=== PATIENT | female | born 1985 | race Caucasian/White ===

== ENCOUNTER 2016-06-02 08:54 | Outpatient (CLI) | payer MEDICAID | END 2016-06-02 08:55 | disposition home or self-care (01) | DX: Z13.0 Encounter for screening for diseases of the blood and blood-forming organs and certain disorders involving the immune mechanism (principal); R25.2 Cramp and spasm; Z13.89 Encounter for screening for other disorder; E55.9 Vitamin D deficiency, unspecified; Z13.29 Encounter for screening for other suspected endocrine disorder ==

== ENCOUNTER 2016-06-06 07:58 | Outpatient (CLI) | payer MEDICAID | END 2016-06-06 07:59 | disposition home or self-care (01) | DX: D64.9 Anemia, unspecified (principal) ==

== ENCOUNTER 2017-05-10 08:47 | Emergency (ER) | payer MEDICAID ==
--- NOTE | 2017-05-10 09:36 | ED Physician Documentation ---
History of Present Illness - Stated complaint Stated Complaint: VOMITING/AFTER EATING - Chief complaint Chief Complaint: General - Additonal information Additional information: hx from pt 31 female doesnt think she is preg but not sure states previously dx with esophogeal spasms 2/2 ulcers - diagnosed by EGD, was on omeprazole but not taking any longer, was supposed to have follow up scope but has not happened to ER with NV same as prior 2/2 esoph 2/2 same no abd pain alos has a L parietal SHEA - same as SHEA she gets every months, X few yr, no visual changes, no numbness or weakness, no fever, has not seen neuro etc but sx are suggestive of migraines Review of Systems Constitutional: denies: Fever, Chills Eyes: denies: Loss of vision Ears: reports: Ear pain (SHEA near ear) Throat: denies: Sore throat GI: reports: Nausea, Vomiting. denies: Abdominal Pain, Diarrhea : denies: Now EGA (doubts but not sure) Neurologic: reports: Headache. denies: Focal weakness, Numbness PD PAST MEDICAL HISTORY - Past Medical History Past Medical History: Yes GI: Other Other Past Medical History: Esophageal Spasms - Past Surgical History General: Other - Present Medications Home Medications: Ambulatory Orders Medication Instructions Recorded Confirmed Ondansetron Odt [Zofran] 4 mg TL Q6H PRN #10 tablet 05/10/17 raNITIdine [Zantac] 150 mg PO BID #60 tablet 05/10/17 - Allergies Allergies/Adverse Reactions: Allergies Allergy/AdvReac Type Severity Reaction Status Date / Time No Known Drug Allergies Allergy Verified 05/10/17 08:53 - Social History Does the pt smoke?: No Smoking Status: Never smoker Does the pt drink ETOH?: No Does the pt have substance abuse?: No PD ED PE NORMAL - Vitals Vital signs reviewed: Yes - HEENT HEENT: PERRL (not hazy, pupils reactive), EOMI, Ears normal, Moist mucous membranes (no oral lesions), Other (no mastoid TTP) - Neck Neck: Supple, no meningeal sign - Cardiac Cardiac: RRR - Respiratory Respiratory: No respiratory distress, Clear bilaterally - Abdomen Abdomen: Soft, Non tender - Derm Derm: Normal color - Neuro Neuro: Alert and oriented X 3, porter sample case 2-12 intact, No motor deficit, No sensory deficit, Normal speech Eye Opening: Spontaneous Motor: Obeys Commands Verbal: Oriented GCS Score: 15 Results - Vitals Vitals: Vital Signs - 24 hr 05/10/17 05/10/17 05/10/17 08:51 10:26 11:30 Temperature 37.3 C Heart Rate 87 66 68 Respiratory 18 18 18 Rate Blood Pressure 140/74 H 112/75 119/73 O2 Saturation 100 100 100 Oxygen O2 Source Room air - Labs Labs: Laboratory Tests 05/10/17 09:20 Urine Color YELLOW Urine Clarity CLEAR Urine pH 7.5 Ur Specific [place] 1.020 Urine Protein NEGATIVE Urine Glucose (UA) NEGATIVE Urine Ketones NEGATIVE Urine Occult Blood NEGATIVE Urine Nitrite NEGATIVE Urine Bilirubin NEGATIVE Urine Urobilinogen 0.2 (NORMAL) Ur Leukocyte Esterase NEGATIVE Ur Microscopic Review NOT INDICATED Urine Culture Comments NOT INDICATED Urine HCG, Qual NEGATIVE PD MEDICAL DECISION MAKING - ED course ED course: long wait to get HCG to proceed with meds etc gave meds pt felt better - SHEA still there but starting to improve, understands i cannot give anything stronger as she is driving her child home Departure - Departure Disposition: 01 Home, Self Care Clinical Impression: GERD with esophagitis, Spasm of esophagus Headache Qualifiers: Headache type: unspecified Headache chronicity pattern: chronic headache Intractability: not intractable Qualified Code(s): R51 - Headache Condition: Good Instructions: Esophagitis, ED GERD, ED Cephalgia Unspecified Follow-Up: ELAINA PARKER MD [Provider Admit Priv/Credential] - Prescriptions: Ondansetron Odt [Zofran] 4 mg TL Q6H PRN #10 tablet PRN Reason: Nausea / Vomiting raNITIdine [Zantac] 150 mg PO BID #60 tablet Comments: You need to have the follow up GI scope - please call the surgery office to schedule Discharge Date/Time: 05/10/17 12:07
[2017-05-10 10:41] LABS: BILIRUBIN,URINE NEGATIVE (NEGATIVE); GLUCOSE, URINE (UA) NEGATIVE (NEGATIVE); KETONES,URINE (UA) NEGATIVE (NEGATIVE); LEUKOCYTE ESTERASE, URINE NEGATIVE (NEGATIVE); NITRITE,URINE NEGATIVE (NEGATIVE); OCCULT BLOOD,URINE NEGATIVE (NEGATIVE); PH,URINE 7.5 PH (5.0-7.5); PROTEIN,URINE NEGATIVE (NEGATIVE); UROBILINOGEN,URINE 0.2 (NORMAL) E.U./dL (NORMAL)
[2017-05-10 10:43] LABS: CLARITY,URINE CLEAR (CLEAR); HCG UR QUAL NEGATIVE
[2017-05-10] MEDS ORDERED: MAG HYDROX/AL HYDROX/SIMETH 30 ML UDC PO STA (11:34)
[2017-05-10] MEDS ORDERED: KETOROLAC 30 MG/ML VIAL IVP STA (11:34)
[2017-05-10] MEDS ORDERED: LIDOCAINE VISCOUS 2% 15 ML UDC MM STA (11:34)
[2017-05-10] MEDS ORDERED: FAMOTIDINE 20 MG/50 ML 50 ML IV ONE (11:34)
[2017-05-10] MEDS ORDERED: SUCRALFATE 1 GM/10 ML UDC PO STA (11:34)
[2017-05-10] MEDS ORDERED: ONDANSETRON 4 MG/2 ML VIAL IVP STA (11:34)
[2017-05-10] MEDS ORDERED: ONDANSETRON ODT 4 MG TABLET TL STA (11:35)
[2017-05-10] MEDS ORDERED: FAMOTIDINE 20 MG TABLET PO STA (11:35)
[2017-05-10] MEDS ORDERED: KETOROLAC 60 MG/2 ML VIAL IM STA (11:35)
[2017-05-10 12:01] VITALS: BP 119/73
== END 2017-05-10 12:07 | disposition home or self-care (01) ==
LOC: ED 08:47
DX: K21.0 Gastro-esophageal reflux disease with esophagitis (principal); K22.4 Dyskinesia of esophagus; R51 Headache
CPT/HCPCS: 81003; 81025; 96372; 99283; A9270; Q0162; 81001; 84703; 87086

== ENCOUNTER 2017-07-18 10:16 | Outpatient (CLI) | payer MEDICAID ==
[2017-07-18 17:36] LABS: BASOPHILS % (AUTO) 0.6 %; EOSINOPHILS # (AUTO) 0.1 10^3/uL (0.0-0.7); EOSINOPHILS % (AUTO) 1.4 %; HGB - HEMOGLOBIN 11.4 g/dL (12.0-16.0); LYMPHOCYTES # (AUTO) 2.3 10^3/uL (1.5-3.5); LYMPHOCYTES % (AUTO) 33.8 %; MEAN CORPUSCULAR HEMOGLOBIN 27.8 pg (27.0-31.0); MEAN CORPUSCULAR HGB CONC 32.1 g/dL (32.0-36.0); MEAN CORPUSCULAR VOLUME 86.4 fL (81.0-99.0); MEAN PLATELET VOLUME 8.8 fL (7.9-10.8); MONOCYTES # (AUTO) 0.6 10^3/uL (0.0-1.0); MONOCYTES % (AUTO) 8.2 %; NEUTROPHILS # (AUTO) 3.9 10^3/uL (1.5-6.6); PLT - PLATELET COUNT 283 10^3/uL (130-450); RED BLOOD COUNT 4.12 10^6/uL (4.20-5.40); RED CELL DISTRIBUTION WIDTH 14.2 % (12.0-15.0); WHITE BLOOD COUNT 6.9 x10^3/uL (4.8-10.8)
[2017-07-18 17:58] LABS: ALBUMIN/GLOBULIN RATIO 1.1 (1.0-2.2); BILIRUBIN,TOTAL 0.4 mg/dL (0.2-1.0); CALCIUM 9.1 mg/dL (8.5-10.3); CREATININE 0.7 mg/dL (0.4-1.0); TOTAL PROTEIN 7.8 g/dL (6.7-8.2)
== END 2017-07-18 10:17 | disposition home or self-care (01) ==
LOC: LAB.F 10:16
PROVIDERS: ATTEND Family Medicine
DX: R10.9 Unspecified abdominal pain (principal)
CPT/HCPCS: 36415; 80053; 82150; 83690; 85025

== ENCOUNTER 2017-07-21 08:00 | Outpatient (CLI) | payer MEDICAID ==
[2017-07-23 12:49] LABS: H. PYLORIS ANTIGEN STL NEGATIVE (Negative)
== END 2017-07-21 23:59 ==
LOC: LAB.R 08:00
PROVIDERS: ATTEND Family Medicine
DX: R10.9 Unspecified abdominal pain (principal)
CPT/HCPCS: 87338

== ENCOUNTER 2017-07-27 13:21 | Outpatient (CLI) | payer MEDICAID ==
--- NOTE | 2017-07-27 17:30 | Ultrasound Report ---
RIGHT UPPER QUADRANT ULTRASOUND: 07/27/2017 CLINICAL INDICATION: Pain. TECHNIQUE: Real-time scanning was performed with district representative static images obtained. FINDINGS: The liver measures 15.5 cm. Hepatic echotexture is normal. No intrahepatic biliary dilatation or focal parenchymal lesion is present. The common bile duct measures 4 mm. The gallbladder demonstrates multiple mobile stones. No wall thickening or pericholecystic fluid is present. The right kidney measures 9.7 cm, and demonstrates no hydronephrosis. No free fluid is present. IMPRESSION: CHOLELITHIASIS, WITHOUT EVIDENCE OF ACUTE CHOLECYSTITIS OR BILIARY OBSTRUCTION. TD: 07/27/2017 17:29
== END 2017-07-27 13:22 | disposition home or self-care (01) ==
LOC: DI 13:21
PROVIDERS: ATTEND Family Medicine
DX: K80.20 Calculus of gallbladder without cholecystitis without obstruction (principal)
CPT/HCPCS: 76705

== ENCOUNTER 2017-08-20 14:46 | Outpatient (CLI) | payer MEDICAID ==
[2017-08-20 17:59] LABS: % IRON SATURATION 8 % (20-50); IRON 31 ug/dL (28-170); TOTAL IRON BINDING CAPACITY 365 ug/dL (250-450); TRANSFERRIN 261 mg/dL (192-382)
== END 2017-08-20 14:47 | disposition home or self-care (01) ==
LOC: LAB.F 14:46
PROVIDERS: ATTEND Physician Assistant Medical
DX: D50.9 Iron deficiency anemia, unspecified (principal)
CPT/HCPCS: 36415; 82728; 83540; 84466

== ENCOUNTER 2017-09-03 08:49 | Day surgery (SDC) | payer MEDICAID ==
[2017-09-03] MEDS ORDERED: ceFAZolin 2 GM/50 ML 2 GM/50 ML BAG IV ONE (09:01)
[2017-09-03] MEDS ORDERED: LACTATED RINGERS 1,000 ML IV ONE ×3 (09:03→14:35)
[2017-09-03 09:25] LABS: HCG UR QUAL NEGATIVE
[2017-09-03] MEDS ORDERED: BUPIVACAINE 0.5%-EPI 1:200000 PF 30 ML VIAL ONE (10:23)
[2017-09-03] MEDS ORDERED: BUPIVACAINE 0.5%-EPI 1:200000 PF 30 ML VIAL SUBQ ONE ×2 (11:25)
[2017-09-03] MEDS ORDERED: ESMOLOL 100 MG/10 ML VIAL IVP ONE (11:52)
[2017-09-03] MEDS ORDERED: LIDOCAINE-PF 4% 5 ML AMP SUBQ ONE (11:52)
[2017-09-03] MEDS ORDERED: GLYCOPYRROLATE 1 MG/5 ML VIAL IVP ONE (11:52)
[2017-09-03] MEDS ORDERED: ePHEDrine 50 MG/ML AMP IVP ONE (11:52)
[2017-09-03] MEDS ORDERED: ROCURONIUM 50 MG/5 ML VIAL IVP ONE (11:52)
[2017-09-03] MEDS ORDERED: ONDANSETRON 4 MG/2 ML VIAL IVP ONE (11:52)
[2017-09-03] MEDS ORDERED: NEOSTIGMINE 1 MG/1 ML 10 ML MDV IVP ONE (11:52)
[2017-09-03] MEDS ORDERED: KETOROLAC 30 MG/ML VIAL IVP ONE (11:52)
[2017-09-03] MEDS ORDERED: fentaNYL 100 MCG/2 ML VIAL IVP ONE (11:52)
[2017-09-03] MEDS ORDERED: PROPOFOL 200 MG/20 ML VIAL IVP ONE (11:52)
[2017-09-03] MEDS ORDERED: ONDANSETRON 4 MG/2 ML VIAL ONE (12:45)
[2017-09-03] MEDS ORDERED: DEXAMETHASONE 4 MG/ML VIAL ONE (12:51)
[2017-09-03] MEDS ORDERED: METOCLOPRAMIDE 10 MG/2 ML VIAL ONE (12:52)
[2017-09-03] MEDS: MIDAZOLAM 2 MG/2 ML VIAL ONE ×2 (12:55→13:06)
[2017-09-03] MEDS ORDERED: ACETAMINOPHEN 1,000 MG/100 ML 100 ML IV ONE (13:03)
[2017-09-03] MEDS ORDERED: oxyCOD/ACETAMIN 5 MG/325 MG TABLET PO ONE (14:13)
--- NOTE | 2017-09-03 14:18 | OPERATIVE REPORT ---
DATE OF SERVICE: 09/03/2017 Physician: Tyrese Terry MD PREOPERATIVE DIAGNOSIS: Symptomatic cholelithiasis/biliary colic. POSTOPERATIVE DIAGNOSIS: Symptomatic cholelithiasis/biliary colic. PROCEDURE PERFORMED: Laparoscopic cholecystectomy. ANESTHESIA: General endotracheal by Dr. Correa. SURGEON: Tyrese Terry M.D. BUS MATRON: Mikey Morales BLOOD LOSS: Minimal. COMPLICATIONS: None. FINDINGS: Laparoscopy revealed a normal-appearing liver, stomach and visualized portions of the small and large bowel. The gallbladder was seen to have mild pericholecystic adhesions around its neck. Otherwise, the gallbladder had normal external appearance. Bile ducts were of normal caliber grossly. Following removal of the gallbladder was seen to be full of yellow/green multifaceted and mixed cholesterol type stones at least 20-30 were present. They appeared to measure approximately 4-5 mm in diameter each. INDICATIONS: Patient is a 31-year-old woman with recurrent episodes of postprandial epigastric and right upper quadrant pain. Her evaluation included ultrasonography showing the presence of cholelithiasis with normal bile ducts. Laboratory testing was all normal. She was felt to be suffering from symptomatic cholelithiasis and advised to undergo laparoscopic cholecystectomy. TECHNIQUE: After informed consent, the patient was taken to the operating room where she was placed under general endotracheal anesthesia. Preoperative preparation included application of sequential calf compression devices and administration 2 grams cefazolin intravenously within an hour of the incision. Her abdomen was prepared with ChloraPrep solution and draped in the usual sterile fashion. Transverse incision was made along the inferior edge of the umbilicus and carried down through the layers of the abdominal wall until the peritoneum was identified and entered sharply. A 10 mm Nena cannula was inserted and pneumoperitoneum achieved with carbon dioxide. A 5-mm 30-degree Ines telescope was inserted. Laparoscopy was carried out with findings noted above. Three additional 5 mm ports were placed in the right upper quadrant. Instruments were passed and the gallbladder was grasped and retracted in a cephalad and lateral direction exposing the triangle of [place]. This region was carefully dissected using the hook electrode and electrocautery, isolating the cystic duct and cystic artery, adjacent to the gallbladder and the critical view of safety was achieved, following which, the cystic artery was doubly clipped proximally and distally. The cystic duct was triply clipped distally, doubly proximally and each structure was divided between. The gallbladder was then excised from the liver bed using electrocautery for dissection and hemostasis. It was detached intact, placed in organ retrieval bag, extracted and opened on the side table and findings noted above and then the tissue sent for pathologic evaluation. After hemostasis was assured, the right upper quadrant was copiously irrigated with saline solution following which instruments and cannulas were removed under direct vision. Pneumoperitoneum was allowed to escape and the incisions were closed in layers using continuous 0 Vicryl, reapproximate the midline fascia at the umbilicus, followed by 4-0 Monocryl subcuticular skin closures at all the port sites, followed by Dermabond. In addition, 30 mL of 0.5% Marcaine with epinephrine was infiltrated into the incisions to assist in postoperative analgesia. Anesthesia was terminated and the patient transferred to the recovery room in satisfactory condition. Sponge and needle counts were correct x2. No drains were used. TD: 09/03/2017 12:34
[2017-09-03] MEDS ORDERED: PROMETHAZINE 25 MG/1 ML VIAL ONE (14:35)
[2017-09-03 16:12] VITALS: BP 113/74
== END 2017-09-03 08:50 | disposition home or self-care (01) ==
LOC: SDS 08:49
PROVIDERS: ATTEND Internal Medicine Gastroenterology
PROC: 0FT44ZZ Resection of Gallbladder, Percutaneous Endoscopic Approach (ICD-10-PCS; principal; 2017-09-03 10:00)
DX: K80.20 Calculus of gallbladder without cholecystitis without obstruction (principal); K21.9 Gastro-esophageal reflux disease without esophagitis
CPT/HCPCS: 47562; 81025; A9270; J0131; J0690; J7120; 88304

== ENCOUNTER 2017-09-18 14:28 | Outpatient (CLI) | payer MEDICAID ==
[2017-09-18 14:37] LABS: BASOPHILS # (AUTO) 0.1 10^3/uL (0.0-0.1); BASOPHILS % (AUTO) 1.8 %; EOSINOPHILS # (AUTO) 0.1 10^3/uL (0.0-0.7); EOSINOPHILS % (AUTO) 1.6 %; HGB - HEMOGLOBIN 12.2 g/dL (12.0-16.0); LYMPHOCYTES # (AUTO) 2.3 10^3/uL (1.5-3.5); LYMPHOCYTES % (AUTO) 34.8 %; MEAN CORPUSCULAR HEMOGLOBIN 28.6 pg (27.0-31.0); MEAN CORPUSCULAR HGB CONC 32.7 g/dL (32.0-36.0); MEAN CORPUSCULAR VOLUME 87.5 fL (81.0-99.0); MONOCYTES # (AUTO) 0.6 10^3/uL (0.0-1.0); NEUTROPHILS # (AUTO) 3.5 10^3/uL (1.5-6.6); NEUTROPHILS % (AUTO) 52.8 %; PLT - PLATELET COUNT 285 10^3/uL (130-450); RED BLOOD COUNT 4.27 10^6/uL (4.20-5.40); RED CELL DISTRIBUTION WIDTH 15.1 % (12.0-15.0); WHITE BLOOD COUNT 6.6 x10^3/uL (4.8-10.8)
[2017-09-18 15:09] LABS: ALBUMIN/GLOBULIN RATIO 1.1 (1.0-2.2); BILIRUBIN,TOTAL 0.5 mg/dL (0.2-1.0); CALCIUM 9.1 mg/dL (8.5-10.3); CREATININE 0.8 mg/dL (0.4-1.0); TOTAL PROTEIN 7.8 g/dL (6.7-8.2)
== END 2017-09-18 14:29 | disposition home or self-care (01) ==
LOC: LAB 14:28
PROVIDERS: ATTEND Internal Medicine Gastroenterology
DX: K80.20 Calculus of gallbladder without cholecystitis without obstruction (principal); R10.13 Epigastric pain
CPT/HCPCS: 36415; 80053; 83690; 85025

== ENCOUNTER 2018-01-28 08:00 | Outpatient (CLI) | payer MEDICAID | END 2018-01-28 08:01 | disposition home or self-care (01) | LOC: LAB.R 08:00 | PROVIDERS: ATTEND Physician Assistant Medical | DX: N39.0 Urinary tract infection, site not specified (principal) | CPT/HCPCS: 87086; 87181 ==

== ENCOUNTER 2018-01-29 21:06 | Outpatient (CLI) | payer MEDICAID ==
--- NOTE | 2018-01-29 23:18 | Ultrasound Report ---
Reason: GROSS HEMATURIA,FLANK PAIN,RIGHT Procedure Date: 01/29/2018 Accession Number: [id number] / [id number] Procedure: US - Abdomen Complete CPT Code: FULL RESULT: EXAM: ABDOMEN ULTRASOUND EXAM DATE: 01/29/2018 09:38 PM. CLINICAL HISTORY: GROSS HEMATURIA,FLANK PAIN,RIGHT. COMPARISON: ABDOMEN LIMITED 07/27/2017 1:29 PM. TECHNIQUE: Real-time scanning was performed with static images obtained. FINDINGS: Liver: Normal in size and echotexture. 15.5 cm. Main portal vein flow: Hepatopetal. Gallbladder: Surgically absent. Biliary System: Common bile duct measures 4 mm. No intrahepatic or extrahepatic ductal dilatation. Pancreas: Visualized portion is unremarkable. Kidneys: Right: 10.1 cm longitudinally. Normal. No contour-deforming mass, stones, or hydronephrosis. Left: 10.9 cm longitudinally. Normal. No contour-deforming mass, stones, or hydronephrosis. Spleen: 10.7 cm. Normal in size and echotexture. Aorta and Inferior Vena Cava: Unremarkable. Other: None. IMPRESSION: Postoperative changes of cholecystectomy. No evidence of nephrolithiasis, hydronephrosis, or focal renal mass. RADIA
== END 2018-01-29 21:07 | disposition home or self-care (01) ==
LOC: DI 21:06
PROVIDERS: ATTEND Physician Assistant Medical
DX: R31.0 Gross hematuria (principal); R10.9 Unspecified abdominal pain; Z90.49 Acquired absence of other specified parts of digestive tract
CPT/HCPCS: 76700

== ENCOUNTER 2018-02-27 14:09 | Outpatient (CLI) | payer MEDICAID ==
[2018-02-27 18:32] LABS: % IRON SATURATION 14 % (20-50); IRON 47 ug/dL (28-170); TOTAL IRON BINDING CAPACITY 347 ug/dL (250-450); TRANSFERRIN 248 mg/dL (192-382)
[2018-02-27 18:33] LABS: THYROID STIMULATING HORMONE 1.15 uIU/mL (0.34-5.60)
[2018-02-27 18:39] LABS: FERRITIN 17.4 ng/mL (11.0-306.8)
[2018-02-28 10:50] LABS: ALBUMIN 4.3 g/dL (3.2-5.5); ALBUMIN/GLOBULIN RATIO 1.3 (1.0-2.2); BILIRUBIN,TOTAL 0.4 mg/dL (0.2-1.0); CALCIUM 9.4 mg/dL (8.5-10.3); CREATININE 0.6 mg/dL (0.4-1.0); MAGNESIUM 2.2 mg/dL (1.7-2.8); TOTAL PROTEIN 7.6 g/dL (6.7-8.2)
== END 2018-02-27 14:10 | disposition home or self-care (01) ==
LOC: LAB.F 14:09
PROVIDERS: ATTEND Physician Assistant Medical
DX: E55.9 Vitamin D deficiency, unspecified (principal); D50.9 Iron deficiency anemia, unspecified; R53.83 Other fatigue; M62.838 Other muscle spasm; G60.9 Hereditary and idiopathic neuropathy, unspecified
CPT/HCPCS: 36415; 80053; 82306; 82607; 82728; 83540; 83735; 84443; 84466

== ENCOUNTER 2018-03-12 09:08 | Emergency (ER) | payer MEDICAID ==
--- NOTE | 2018-03-12 10:39 | ED Physician Documentation ---
History of Present Illness - Stated complaint Stated Complaint: CHEST TIGHTNESS - Chief complaint Chief Complaint: General - Additonal information Additional information: hx from pt epigastric pains with abd and chest spasms for years worse the last year PMD tried omeprazole and reglan s relief she had abd sono and a malina sx continue much worse this week occurring many times a day sometimes triggered by eating resolves spont after 45 min to and hr + SOA and nausea with episodes no leg swelling denies pre no EtoH Review of Systems Constitutional: denies: Fever, Chills Cardiac: reports: Chest pain / pressure Respiratory: reports: Dyspnea GI: reports: Abdominal Pain, Nausea. denies: Vomiting, Diarrhea Musculoskeletal: reports: Back pain (wraps around) Endocrine: denies: Easy bruising / bleeding Immunocompromised: denies: Immunocompromised PD PAST MEDICAL HISTORY - Past Medical History Cardiovascular: None Respiratory: None Endocrine/Autoimmune: None GI: Other : None HEENT: None Psych: Claustrophobia Musculoskeletal: None Derm: None - Past Surgical History General: Other - Present Medications Home Medications: Ambulatory Orders Medication Instructions Recorded Confirmed Cholecalciferol [Vitamin D3] 6,000 unit PO DAILY 08/30/17 09/03/17 Ferrous Sulfate 325 mg PO DAILY 08/30/17 09/03/17 Metoclopramide [Reglan] 10 mg PO ACHS 08/30/17 09/03/17 Omeprazole 20 mg PO BID 08/30/17 09/03/17 Simethicone [Gas Relief] 125 mg PO DAILY PRN 08/30/17 09/03/17 Dicyclomine [Bentyl] 10 mg PO Q8H PRN #20 capsule 03/12/18 Famotidine [Pepcid] 20 mg PO BID #60 tablet 03/12/18 Sucralfate [Carafate] 1 gm PO ACHS #120 tablet 03/12/18 - Allergies Allergies/Adverse Reactions: Allergies Allergy/AdvReac Type Severity Reaction Status Date / Time No Known Drug Allergies Allergy Verified 08/30/17 14:29 - Social History Does the pt smoke?: No Smoking Status: Never smoker Does the pt drink ETOH?: No Does the pt have substance abuse?: No PD ED PE NORMAL - Vitals Vital signs reviewed: Yes - General General: Alert and oriented X 3 - Cardiac Cardiac: RRR - Respiratory Respiratory: No respiratory distress, Clear bilaterally - Abdomen Abdomen: Soft, Other (TTP epigastric region s peritoneal signs, aorta palp but does not feel enlarged) - Extremities Extremities: No edema, No calf tenderness / cord - Neuro Neuro: Alert and oriented X 3, No motor deficit Results - Vitals Vitals: Vital Signs - 24 hr 03/12/18 03/12/18 09:25 13:16 Temperature 36.5 C 36.6 C Heart Rate 96 89 Respiratory 18 18 Rate Blood Pressure 122/85 H 120/84 H O2 Saturation 100 100 Oxygen O2 Source Room air - EKG (time done) 0948 Rate: Rate (enter#) Rhythm: NSR (57) [place]: Normal Intervals: Normal RI QRS: Normal Ischemia: Normal ST segments - Labs Labs: Laboratory Tests 03/12/18 03/12/18 11:14 11:14 WBC 8.3 RBC 4.09 L Hgb 12.1 Hct 35.7 L MCV 87.3 MCH 29.5 MCHC 33.9 RDW 14.4 Plt Count 265 MPV 7.8 L Neut # (Auto) 5.4 Lymph # (Auto) 2.1 [place] # (Auto) 0.7 Eos # (Auto) 0.0 Baso # (Auto) 0.1 Absolute Nucleated RBC 0.00 Nucleated RBC % 0.0 Sodium 135 Potassium 3.9 Chloride 101 Carbon Dioxide 28 Anion Gap 6.0 BUN 10 Creatinine 0.7 Estimated GFR (MDRD) 96 Glucose 102 H Calcium 8.9 Total Bilirubin 0.3 AST 48 H ALT 45 Alkaline Phosphatase 87 Total Protein 8.0 Albumin 4.2 Globulin 3.8 Albumin/Globulin Ratio 1.1 Lipase 21 L Departure - Departure Disposition: 01 Home, Self Care Clinical Impression: Epigastric pain Condition: Good Instructions: ED PUD, ED Epigastric Pain UKO Follow-Up: Griffin Min MD [Provider Admit Priv/Credential] - (to schedule EGD) Prescriptions: Dicyclomine [Bentyl] 10 mg PO Q8H PRN #20 capsule PRN Reason: Stomach cramps Famotidine [Pepcid] 20 mg PO BID #60 tablet Sucralfate [Carafate] 1 gm PO ACHS #120 tablet Comments: Your labs looked fine You recently had imaging that was reassuring as well I am concerned you may have an ulcer and I have prescribed medication for that possibility - Ok to take with the reglan you are already prescribed I recommend you get a scope of your stomach called an EGD to confirm this d iagnosis- please call the surgery office to schedule Forms: Activity restrictions Discharge Date/Time: 03/12/18 13:16
[2018-03-12] MEDS ORDERED: SUCRALFATE 1 GM/10 ML UDC PO STA (11:05)
[2018-03-12] MEDS ORDERED: MAG HYDROX/AL HYDROX/SIMETH 30 ML UDC PO STA (11:05)
[2018-03-12] MEDS ORDERED: FAMOTIDINE 20 MG/50 ML 50 ML IV ONE (11:05)
[2018-03-12] MEDS ORDERED: LIDOCAINE VISCOUS 2% 15 ML UDC MM STA (11:05)
[2018-03-12 11:22] LABS: BASOPHILS # (AUTO) 0.1 10^3/uL (0.0-0.1); BASOPHILS % (AUTO) 0.9 %; EOSINOPHILS % (AUTO) 0.3 %; HGB - HEMOGLOBIN 12.1 g/dL (12.0-16.0); LYMPHOCYTES # (AUTO) 2.1 10^3/uL (1.5-3.5); LYMPHOCYTES % (AUTO) 24.7 %; MEAN CORPUSCULAR HEMOGLOBIN 29.5 pg (27.0-31.0); MEAN CORPUSCULAR HGB CONC 33.9 g/dL (32.0-36.0); MEAN CORPUSCULAR VOLUME 87.3 fL (81.0-99.0); MEAN PLATELET VOLUME 7.8 fL (7.9-10.8); MONOCYTES # (AUTO) 0.7 10^3/uL (0.0-1.0); NEUTROPHILS # (AUTO) 5.4 10^3/uL (1.5-6.6); NEUTROPHILS % (AUTO) 65.1 %; PLT - PLATELET COUNT 265 10^3/uL (130-450); RED BLOOD COUNT 4.09 10^6/uL (4.20-5.40); RED CELL DISTRIBUTION WIDTH 14.4 % (12.0-15.0); WHITE BLOOD COUNT 8.3 x10^3/uL (4.8-10.8)
[2018-03-12 11:35] LABS: ALBUMIN 4.2 g/dL (3.2-5.5); ALBUMIN/GLOBULIN RATIO 1.1 (1.0-2.2); BILIRUBIN,TOTAL 0.3 mg/dL (0.2-1.0); CALCIUM 8.9 mg/dL (8.5-10.3); CREATININE 0.7 mg/dL (0.4-1.0)
[2018-03-12 13:17] VITALS: BP 120/84
== END 2018-03-12 13:16 | disposition home or self-care (01) ==
LOC: ED 09:08
DX: R10.13 Epigastric pain (principal); R11.0 Nausea; R07.9 Chest pain, unspecified
CPT/HCPCS: 36415; 80053; 83690; 85025; 93005; 96365; 99283; A9270

== ENCOUNTER 2022-08-07 20:08 | Emergency (ER) | payer MEDICAID ==
[2022-08-07 20:14] VITALS: BP 134/84
--- NOTE | 2022-08-07 20:22 | ED Physician Documentation ---
PD HPI LOWER EXT INJURY - Stated complaint Stated Complaint: R TOE INJ - Chief complaint Chief Complaint: Trauma Ext - History obtained from History obtained from: Patient (She dropped a piece of plywood on her right great toe at home around 11:00 this morning and with increasing severe pain.) PD PAST MEDICAL HISTORY - Past Medical History Cardiovascular: None Respiratory: None Neuro: None Endocrine/Autoimmune: None GI: Other [employer]: None : None HEENT: None Psych: Claustrophobia Musculoskeletal: None Derm: None - Past Surgical History Past Surgical History: Yes General: Other - Present Medications Home Medications: Ambulatory Orders Medication Instructions Recorded Confirmed Cholecalciferol [Vitamin D3] 6,000 unit PO DAILY 08/30/17 09/03/17 Ferrous Sulfate 325 mg PO DAILY 08/30/17 09/03/17 Metoclopramide [Reglan] 10 mg PO ACHS 08/30/17 09/03/17 Omeprazole 20 mg PO BID 08/30/17 09/03/17 Simethicone [Gas Relief] 125 mg PO DAILY PRN 08/30/17 09/03/17 Dicyclomine [Bentyl] 10 mg PO Q8H PRN #20 capsule 03/12/18 Famotidine [Pepcid] 20 mg PO BID #60 tablet 03/12/18 Sucralfate [Carafate] 1 gm PO ACHS #120 tablet 03/12/18 HYDROcod/ACETAM 5/325 [[place] 5/325] 1 - 2 tab PO Q6H PRN #10 tablet 08/07/22 - Allergies Allergies/Adverse Reactions: Allergies Allergy/AdvReac Type Severity Reaction Status Date / Time No Known Drug Allergies Allergy Verified 08/07/22 20:12 - Social History Does the pt smoke?: No Smoking Status: Never smoker Does the pt drink ETOH?: No Does the pt have substance abuse?: No - Immunizations Immunizations are current?: Yes - POLST Patient has POLST: No PD ED PE NORMAL - Vitals Vital signs reviewed: Yes - General General: Alert and oriented X 3, No acute distress - Derm Derm: Normal color, Warm and dry - Extremities Extremities: Other (Bruising of the entirety of the right great toe with tenderness throughout.) - Neuro Neuro: Alert and oriented X 3, Normal speech Results - Vitals Vitals: Vital Signs - 24 hr 08/07/22 20:12 Temperature 36.5 C Heart Rate 88 Respiratory 18 Rate Blood Pressure 134/84 H O2 Saturation 100 Oxygen O2 Source Room air - Rads (name of study) R foot XR Relevant Findings:: Final report received, EMP independent interpretation of test Procedures - Regional nerve block - Minor Nerve block site: Digital - note digit(s) (Digital block was done with Marcaine and a standard dorsal fashion. 0.5%.) PD Medical Decision Making - ED course ED course: 36-year-old woman with a right large toe fracture. She had a lot of pain and was blocked with Marcaine on initial evaluation with excellent relief. She was developing a subungual hematoma so the nail was trephinated. Then she was toni taped and placed in a fracture shoe. Departure - Departure Disposition: 01 Home, Self Care Clinical Impression: Fracture of right great toe Qualifiers: Encounter type: initial encounter Fracture type: closed Phalanx: distal Fracture alignment: nondisplaced Qualified Code(s): S92.424A - Nondisplaced fracture of distal phalanx of right great toe, initial encounter for closed fracture Condition: Good Record reviewed to determine appropriate education?: Yes Instructions: ED Fx Toe Closed Follow-Up: [facility] [Provider Group] Prescriptions: HYDROcod/ACETAM 5/325 [[place] 5/325] 1 - 2 tab PO Q6H PRN #10 tablet PRN Reason: Pain Comments: Follow-up with the orthopedic surgeons within the week for further evaluation an d treatment. Call tomorrow for an appointment. Keep it elevated and toni tape as shown. I sent a prescription for some stronger pain medication to [facility] in [place]. When pain is mild take Tylenol and/or ibuprofen as needed for pain. Elevate is much as possible. You can also ice it. I am prescribing a short course of narcotic pain medication for you. These are potentially dangerous and addictive medications that should be used carefully. These medications may constipate you. Take an [id number] stool softener (docusate) twice daily with plenty of water while taking these medications. If you go 24 hours without a bowel movement, take [id number] miralax, per package instructions. Do not drink or drive while taking these medications. If you received narcotic or sedating medications while in the emergency department, do not drive for 24 hours. Store this medication in a safe, secure place and out of reach of children. It is a violation of federal law to give or sell this medication to another person or to use in a manner other than prescribed. The ED will not refill narcotic prescriptions, including prescriptions lost or stolen. To dispose of unwanted medications: 1. [facility] [address] in [place] has a medication drop box. They accept prescription medications (in pill form) Sunday through Sunday 9:00 a.m. to 5:00 p.m. 2. The [facility] accepts prescription medications (in pill form only) for disposal year round. Call for more information. 3. Contact the [facility] for the next [facility] sponsored prescription drug collection event. , [phone], or [phone]; Note that many narcotic pain relievers also contain Tylenol/acetaminophen. Please ensure that your total dose of acetaminophen from all sources does not exceed 3 g (3000 mg) per day. Discharge Date/Time: 08/07/22 21:05
[2022-08-07] MEDS ORDERED: HYDROcod/ACET 5/325 Prepack 4 PO STA (20:57)
--- OUTSIDE RECORDS SUMMARY | 2022-08-07 21:15 | EXTERNAL MEDICAL SUMMARY RPT | Continuity of Care Document ---
Author Name Unknown Address [address] [place] [address] Phone Organization [facility] Address [address] [place] [address] Phone Care Team Providers Care Carrier Driver Name Role Phone Zainab Rosas Unavailable Unavailable Eunice Vigil Unavailable Unavailable Problems date description facility 2022-06-02 08:41 Irregular menstruation, unspeci fied [facility] 2022-06-02 08:41 Snoring [facility] 2022-06-02 08:41 Other fatigue [facility] 2022-06-02 08:41 Abnormal levels of other serum enzymes [facility] 2022-06-12 00:00 Abdominal aortic aneurysm (AAA) [facility] 2022-06-12 00:00 Nonalcoholic fatty liver diseas e [facility] 2022-06-12 00:[facility] 13:38 Unspecified abdominal pain [facility] 2022-08-06 13:41 Unspecified abdominal pain [facility] 2022-08-07 00:08 Unspecified abdominal pain [facility] Results/Labs test date author facility value unit interpretation Result panel 1 (unknown) (no date) (unknown) [facility] (no value) (units unknown) (unknown) Result panel 2 (unknown) (no date) (unknown) [facility] (no value) (units unknown) (unknown) Result panel 3 (unknown) (no date) (unknown) [facility] (no value) (units unknown) (unknown) Result panel 4 (unknown) (no date) (unknown) [facility] (no value) (units unknown) (unknown) Result panel 5 (unknown) (no date) (unknown) [facility] (no value) (units unknown) (unknown) Result panel 6 (unknown) (no date) (unknown) [facility] (no value) (units unknown) (unknown) Result panel 7 (unknown) (no date) (unknown) [facility] (no value) (units unknown) (unknown) Result panel 8 (unknown) (no date) (unknown) [facility] (no value) (units unknown) (unknown) Result panel 9 (unknown) (no date) (unknown) [facility] (no value) (units unknown) (unknown) Result panel 10 (unknown) (no date) (unknown) [facility] (no value) (units unknown) (unknown) Result panel 11 (unknown) (no date) (unknown) [facility] (no value) (units unknown) (unknown) Result panel 12 (unknown) (no date) (unknown) [facility] (no value) (units unknown) (unknown) Result panel 13 (unknown) (no date) (unknown) [facility] (no value) (units unknown) (unknown) Result panel 14 (unknown) (no date) (unknown) [facility] (no value) (units unknown) (unknown) Result panel 15 (unknown) (no date) (unknown) [facility] (no value) (units unknown) (unknown) Result panel 16 (unknown) (no date) (unknown) [facility] (no value) (units unknown) (unknown) Result panel 17 (unknown) (no date) (unknown) [facility] (no value) (units unknown) (unknown) Result panel 18 (unknown) (no date) (unknown) [facility] (no value) (units unknown) (unknown) Result panel 19 (unknown) (no date) (unknown) [facility] (no value) (units unknown) (unknown) Result panel 20 (unknown) (no date) (unknown) [facility] (no value) (units unknown) (unknown) Result panel 21 (unknown) (no date) (unknown) [facility] (no value) (units unknown) (unknown) Result panel 22 (unknown) (no date) (unknown) [facility] (no value) (units unknown) (unknown) Result panel 23 (unknown) (no date) (unknown) [facility] (no value) (units unknown) (unknown) Result panel 24 (unknown) (no date) (unknown) [facility] (no value) (units unknown) (unknown) Result panel 25 (unknown) (no date) (unknown) [facility] (no value) (units unknown) (unknown) Result panel 26 (unknown) (no date) (unknown) [facility] (no value) (units unknown) (unknown) Result panel 27 (unknown) (no date) (unknown) [facility] (no value) (units unknown) (unknown) Result panel 28 (unknown) (no date) (unknown) [facility] (no value) (units unknown) (unknown) Result panel 29 (unknown) (no date) (unknown) [facility] (no value) (units unknown) (unknown) Result panel 30 (unknown) (no date) (unknown) [facility] (no value) (units unknown) (unknown) Result panel 31 (unknown) (no date) (unknown) [facility] (no value) (units unknown) (unknown) Result panel 32 (unknown) (no date) (unknown) [facility] (no value) (units unknown) (unknown) Result panel 33 (unknown) (no date) (unknown) [facility] (no value) (units unknown) (unknown) Result panel 34 (unknown) (no date) (unknown) [facility] (no value) (units unknown) (unknown) Result panel 35 (unknown) (no date) (unknown) (unknown) (no value) (units unknown) (unknown) (unknown) (no date) (unknown) (unknown) [id number] (units unknown) (unknown) (unknown) (no date) (unknown) (unknown) 06/02/22 (units unknown) (unknown) (unknown) (no date) (unknown) (unknown) 36 year old fe male presents to clinic to establish care and review elevated (units unknown) (unknown) (unknown) (no date) (unknown) (unknown) Acne (-1998) (units unknown) (unknown) (unknown) (no date) (unknown) (unknown) Age/Sex: 36 / F Date of Service: (units unknown) (unknown) (unknown) (no date) (unknown) (unknown) Allergies (units unknown) (unknown) (unknown) (no date) (unknown) (unknown) [place], [place] [id number] (units unknown) (unknown) (unknown) (no date) (unknown) (unknown) Anemia (units unknown) (unknown) (unknown) (no date) (unknown) (unknown) Anesthesia (units unknown) (unknown) (unknown) (no date) (unknown) (unknown) Attending Dr: Zainab Rosas D.O. (units unknown) (unknown) (unknown) (no date) (unknown) (unknown) Brother Down syndrome (units unknown) (unknown) (unknown) (no date) (unknown) (unknown) Cancer (units unknown) (unknown) (unknown) (no date) (unknown) (unknown) : 5 Acct:[id number] (units unknown) (unknown) (unknown) (no date) (unknown) (unknown) Dept at . (units unknown) (unknown) (unknown) (no date) (unknown) (unknown) Diet and Exercise (u nits unknown) (unknown) (unknown) (no date) (unknown) (unknown) Documented By: Zainab Rosas 06/02/22 0803 (units unknown) (unknown) (unknown) (no date) (unknown) (unknown) Draft (units unknown) (unknown) (unknown) (no date) (unknown) (unknown) Dysphagia (2005) (un its unknown) (unknown) (unknown) (no date) (unknown) (unknown) Elevated liver enzymes (01/2019) (units unknown) (unknown) (unknown) (no date) (unknown) (unknown) Family History (units unknown) (unknown) (unknown) (no date) (unknown) (unknown) Family Practic e Office Visit (units unknown) (unknown) (unknown) (no date) (unknown) (unknown) Family estrangement (units unknown) (unknown) (unknown) (no date) (unknown) (unknown) Father d Liver cancer (units unknown) (unknown) (unknown) (no date) (unknown) (unknown) [facility] (units unknown) (unknown) (unknown) (no date) (unknown) (unknown) GERD (gastroesophageal reflux disease) (-2005) (units unknown) (unknown) (unknown) (no date) (unknown) (unknown) Gallstones (-2017) ( units unknown) (unknown) (unknown) (no date) (unknown) (unknown) Glaucoma (units unknown) (unknown) (unknown) (no date) (unknown) (unknown) Grandfather Cancer (units unknown) (unknown) (unknown) (no date) (unknown) (unknown) Grandfather Unknown whether patient has any health problems (units unknown) (unknown) (unknown) (no date) (unknown) (unknown) Grandmother Family estrangement (units unknown) (unknown) (unknown) (no date) (unknown) (unknown) Grandmother No problems noted. (units unknown) (unknown) (unknown) (no date) (unknown) (unknown) Health Managem ent reviewed with patient: Yes (units unknown) (unknown) (unknown) (no date) (unknown) (unknown) Health Management (u nits unknown) (unknown) (unknown) (no date) (unknown) (unknown) Heavy menstrua l period () (units unknown) (unknown) (unknown) (no date) (unknown) (unknown) History of cholecystectomy () (units unknown) (unknown) (unknown) (no date) (unknown) (unknown) Intake Note: (units unknown) (unknown) (unknown) (no date) (unknown) (unknown) Intake perform ed by: Christy Hawthorne (units unknown) (unknown) (unknown) (no date) (unknown) (unknown) Intake (units unknown) (unknown) (unknown) (no date) (unknown) (unknown) Intake- [facility] (units unknown) (unknown) (unknown) (no date) (unknown) (unknown) Irregular mens trual cycle () (units unknown) (unknown) (unknown) (no date) (unknown) (unknown) Loc: [facility] (units unknown) (unknown) (unknown) (no date) (unknown) (unknown) Medical Histor y (units unknown) (unknown) (unknown) (no date) (unknown) (unknown) Migraines (units unknown) (unknown) (unknown) (no date) (unknown) (unknown) Mother Rheumat oid arthritis (units unknown) (unknown) (unknown) (no date) (unknown) (unknown) No Known Drug Allergies Allergy (Verified 06/02/22 08:04) (units unknown) (unknown) (unknown) (no date) (unknown) (unknown) PFSH (units unknown) (unknown) (unknown) (no date) (unknown) (unknown) Painful menstr ual periods () (units unknown) (unknown) (unknown) (no date) (unknown) (unknown) Patient: Haydee Woodson MR#: [id number] (units unknown) (unknown) (unknown) (no date) (unknown) (unknown) (units unknown) (unknown) (unknown) (no date) (unknown) (unknown) Psoriasis (units unknown) (unknown) (unknown) (no date) (unknown) (unknown) Reason For Visit (un its unknown) (unknown) (unknown) (no date) (unknown) (unknown) Regurgitation of food (units unknown) (unknown) (unknown) (no date) (unknown) (unknown) Safety (units unknown) (unknown) (unknown) (no date) (unknown) (unknown) Signed By: (units unknown) (unknown) (unknown) (no date) (unknown) (unknown) Sister Glaucoma (uni ts unknown) (unknown) (unknown) (no date) (unknown) (unknown) Sister History of cholecystectomy (units unknown) (unknown) (unknown) (no date) (unknown) (unknown) Smoking Status : Never smoker (units unknown) (unknown) (unknown) (no date) (unknown) (unknown) Social History (unit s unknown) (unknown) (unknown) (no date) (unknown) (unknown) Surgical Histo ry (units unknown) (unknown) (unknown) (no date) (unknown) (unknown) This note may have been all or partially generated using voice recognition (units unknown) (unknown) (unknown) (no date) (unknown) (unknown) Threatened (units unknown) (unknown) (unknown) (no date) (unknown) (unknown) Tobacco + Subs tance Use (units unknown) (unknown) (unknown) (no date) (unknown) (unknown) Tobacco Status (unit s unknown) (unknown) (unknown) (no date) (unknown) (unknown) Type(s) of exercise: normal ROM and activity (Busy mom, with young children) (units unknown) (unknown) (unknown) (no date) (unknown) (unknown) Unknown whethe r patient has any health problems (units unknown) (unknown) (unknown) (no date) (unknown) (unknown) Uterine cancer (unit s unknown) (unknown) (unknown) (no date) (unknown) (unknown) 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 (units unknown) (unknown) (unknown) (no date) (unknown) (unknown) Petroleum teeth removed (-2006) (units unknown) (unknown) (unknown) (no date) (unknown) (unknown) alcohol intake : never (units unknown) (unknown) (unknown) (no date) (unknown) (unknown) caffeine: Yes (1 decaf daily.) (units unknown) (unknown) (unknown) (no date) (unknown) (unknown) caregiver/supp ort person: No (units unknown) (unknown) (unknown) (no date) (unknown) (unknown) current occupational exposures/hazards: No (units unknown) (unknown) (unknown) (no date) (unknown) (unknown) daily servings fruits/ve-4 (units unknown) (unknown) (unknown) (no date) (unknown) (unknown) do you feel sa fe at home: Yes (units unknown) (unknown) (unknown) (no date) (unknown) (unknown) during the pas t year weight has: remained stable (units unknown) (unknown) (unknown) (no date) (unknown) (unknown) education leve l: high school (units unknown) (unknown) (unknown) (no date) (unknown) (unknown) jj/jainism : Anabaptism (units unknown) (unknown) (unknown) (no date) (unknown) (unknown) frequency: ro s not exercise (units unknown) (unknown) (unknown) (no date) (unknown) (unknown) have occurred. If there are any questions, please contact the Medical Records (units unknown) (unknown) (unknown) (no date) (unknown) (unknown) household memb ers: spouse and children (units unknown) (unknown) (unknown) (no date) (unknown) (unknown) housing: house (unit s unknown) (unknown) (unknown) (no date) (unknown) (unknown) liver enzymes. (unit s unknown) (unknown) (unknown) (no date) (unknown) (unknown) lives independently: Yes (units unknown) (unknown) (unknown) (no date) (unknown) (unknown) marital status : (units unknown) (unknown) (unknown) (no date) (unknown) (unknown) may occur. 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 Please (units unknown) (unknown) (unknown) (no date) (unknown) (unknown) pets and anima ls: Yes (Dogs + cats: safe/ aware.) (units unknown) (unknown) (unknown) (no date) (unknown) (unknown) read the note carefully and recognize, using context, where these substitutions (units unknown) (unknown) (unknown) (no date) (unknown) (unknown) seatbelt use: always (units unknown) (unknown) (unknown) (no date) (unknown) (unknown) second hand exposure: No (units unknown) (unknown) (unknown) (no date) (unknown) (unknown) software. Alth ough every effort is made to edit content, advanced seal delivery system errors (units unknown) (unknown) (unknown) (no date) (unknown) (unknown) special jj needs: No (units unknown) (unknown) (unknown) (no date) (unknown) (unknown) substance use type: does not use (units unknown) (unknown) (unknown) (no date) (unknown) (unknown) well-balanced diet: about half the time ('Hard to eat protein lately.' ) (units unknown) (unknown) Result panel 36 (unknown) (no date) (unknown) (unknown) (no value) (units unknown) (unknown) (unknown) (no date) (unknown) (unknown) [id number] (units unknown) (unknown) (unknown) (no date) (unknown) (unknown) 06/02/22 (units unknown) (unknown) (unknown) (no date) (unknown) (unknown) 08:08 (units unknown) (unknown) (unknown) (no date) (unknown) (unknown) 36 year old fe male presents to clinic to establish care and review elevated (units unknown) (unknown) (unknown) (no date) (unknown) (unknown) Acne (-1998) (units unknown) (unknown) (unknown) (no date) (unknown) (unknown) Age/Sex: 36 / F Date of Service: (units unknown) (unknown) (unknown) (no date) (unknown) (unknown) Allergies (units unknown) (unknown) (unknown) (no date) (unknown) (unknown) [place] [id number] (units unknown) (unknown) (unknown) (no date) (unknown) (unknown) Anemia (units unknown) (unknown) (unknown) (no date) (unknown) (unknown) Anesthesia (units unknown) (unknown) (unknown) (no date) (unknown) (unknown) Attending Dr: Zainab Rosas D.OAwilda (units unknown) (unknown) (unknown) (no date) (unknown) (unknown) BMI 37.3 (units unknown) (unknown) (unknown) (no date) (unknown) (unknown) BP 119/74 (units unknown) (unknown) (unknown) (no date) (unknown) (unknown) Blood Pressure Location Lt brachial (units unknown) (unknown) (unknown) (no date) (unknown) (unknown) Brother Down syndrome (units unknown) (unknown) (unknown) (no date) (unknown) (unknown) Cancer (units unknown) (unknown) (unknown) (no date) (unknown) (unknown) Confirmed 06/02/22] (units unknown) (unknown) (unknown) (no date) (unknown) (unknown) : 5 Acct:[id number] (units unknown) (unknown) (unknown) (no date) (unknown) (unknown) Dept at . (units unknown) (unknown) (unknown) (no date) (unknown) (unknown) Diet and Exercise (u nits unknown) (unknown) (unknown) (no date) (unknown) (unknown) Documented By: Zainab Rosas 06/02/22 0803 (units unknown) (unknown) (unknown) (no date) (unknown) (unknown) Draft (units unknown) (unknown) (unknown) (no date) (unknown) (unknown) Dysphagia (2005) (un its unknown) (unknown) (unknown) (no date) (unknown) (unknown) Elevated liver enzymes (01/2019) (units unknown) (unknown) (unknown) (no date) (unknown) (unknown) Family History (units unknown) (unknown) (unknown) (no date) (unknown) (unknown) Family Practic e Office Visit (units unknown) (unknown) (unknown) (no date) (unknown) (unknown) Family estrangement (units unknown) (unknown) (unknown) (no date) (unknown) (unknown) Father d Liver cancer (units unknown) (unknown) (unknown) (no date) (unknown) (unknown) [facility] (units unknown) (unknown) (unknown) (no date) (unknown) (unknown) GERD (gastroesophageal reflux disease) () (units unknown) (unknown) (unknown) (no date) (unknown) (unknown) Gallstones () ( units unknown) (unknown) (unknown) (no date) (unknown) (unknown) Glaucoma (units unknown) (unknown) (unknown) (no date) (unknown) (unknown) Grandfather Cancer (units unknown) (unknown) (unknown) (no date) (unknown) (unknown) Grandfather Unknown whether patient has any health problems (units unknown) (unknown) (unknown) (no date) (unknown) (unknown) Grandmother Family estrangement (units unknown) (unknown) (unknown) (no date) (unknown) (unknown) Grandmother No problems noted. (units unknown) (unknown) (unknown) (no date) (unknown) (unknown) Health Managem ent reviewed with patient: Yes (units unknown) (unknown) (unknown) (no date) (unknown) (unknown) Health Management (u nits unknown) (unknown) (unknown) (no date) (unknown) (unknown) Heavy menstrua l period () (units unknown) (unknown) (unknown) (no date) (unknown) (unknown) Height 5 ft 3.5 in ( units unknown) (unknown) (unknown) (no date) (unknown) (unknown) History of cholecystectomy () (units unknown) (unknown) (unknown) (no date) (unknown) (unknown) Intake Note: (units unknown) (unknown) (unknown) (no date) (unknown) (unknown) Intake perform ed by: Christy Hawthorne (units unknown) (unknown) (unknown) (no date) (unknown) (unknown) Intake (units unknown) (unknown) (unknown) (no date) (unknown) (unknown) Intake- [facility] (units unknown) (unknown) (unknown) (no date) (unknown) (unknown) Irregular mens trual cycle () (units unknown) (unknown) (unknown) (no date) (unknown) (unknown) Loc: [facility] (units unknown) (unknown) (unknown) (no date) (unknown) (unknown) Medical Histor y (units unknown) (unknown) (unknown) (no date) (unknown) (unknown) Medications (units unknown) (unknown) (unknown) (no date) (unknown) (unknown) Migraines (units unknown) (unknown) (unknown) (no date) (unknown) (unknown) Mother Rheumat oid arthritis (units unknown) (unknown) (unknown) (no date) (unknown) (unknown) No Known Drug Allergies Allergy (Verified 06/02/22 08:07) (units unknown) (unknown) (unknown) (no date) (unknown) (unknown) Oxygen Deliver y Method room air (units unknown) (unknown) (unknown) (no date) (unknown) (unknown) PFSH (units unknown) (unknown) (unknown) (no date) (unknown) (unknown) Painful menstr ual periods () (units unknown) (unknown) (unknown) (no date) (unknown) (unknown) Patient: Haydee Woodson MR#: [id number] (units unknown) (unknown) (unknown) (no date) (unknown) (unknown) Position Sitting (un its unknown) (unknown) (unknown) (no date) (unknown) (unknown) (units unknown) (unknown) (unknown) (no date) (unknown) (unknown) Psoriasis (units unknown) (unknown) (unknown) (no date) (unknown) (unknown) Pulse 86 (units unknown) (unknown) (unknown) (no date) (unknown) (unknown) Pulse Oximetry (%) 98 (units unknown) (unknown) (unknown) (no date) (unknown) (unknown) Pulse Source Monitor (units unknown) (unknown) (unknown) (no date) (unknown) (unknown) Reason For Visit (un its unknown) (unknown) (unknown) (no date) (unknown) (unknown) Regurgitation of food (units unknown) (unknown) (unknown) (no date) (unknown) (unknown) Safety (units unknown) (unknown) (unknown) (no date) (unknown) (unknown) Signed By: (units unknown) (unknown) (unknown) (no date) (unknown) (unknown) Sister Glaucoma (uni ts unknown) (unknown) (unknown) (no date) (unknown) (unknown) Sister History of cholecystectomy (units unknown) (unknown) (unknown) (no date) (unknown) (unknown) Smoking Status : Never smoker (units unknown) (unknown) (unknown) (no date) (unknown) (unknown) Social History (unit s unknown) (unknown) (unknown) (no date) (unknown) (unknown) Surgical Histo ry (units unknown) (unknown) (unknown) (no date) (unknown) (unknown) Temp 97.1 F L (units unknown) (unknown) (unknown) (no date) (unknown) (unknown) Temp Source Temporal Artery Scan (units unknown) (unknown) (unknown) (no date) (unknown) (unknown) This note may have been all or partially generated using voice recognition (units unknown) (unknown) (unknown) (no date) (unknown) (unknown) Threatened (units unknown) (unknown) (unknown) (no date) (unknown) (unknown) Tobacco + Subs tance Use (units unknown) (unknown) (unknown) (no date) (unknown) (unknown) Tobacco Status (unit s unknown) (unknown) (unknown) (no date) (unknown) (unknown) Type(s) of exercise: normal ROM and activity (Busy mom, with young children) (units unknown) (unknown) (unknown) (no date) (unknown) (unknown) Unknown whethe r patient has any health problems (units unknown) (unknown) (unknown) (no date) (unknown) (unknown) Uterine cancer (unit s unknown) (unknown) (unknown) (no date) (unknown) (unknown) 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 (units unknown) (unknown) (unknown) (no date) (unknown) (unknown) Vitals (units unknown) (unknown) (unknown) (no date) (unknown) (unknown) Weight 214 lb (units unknown) (unknown) (unknown) (no date) (unknown) (unknown) Petroleum teeth removed (-2006) (units unknown) (unknown) (unknown) (no date) (unknown) (unknown) alcohol intake : never (units unknown) (unknown) (unknown) (no date) (unknown) (unknown) caffeine: Yes (1 decaf daily.) (units unknown) (unknown) (unknown) (no date) (unknown) (unknown) caregiver/supp ort person: No (units unknown) (unknown) (unknown) (no date) (unknown) (unknown) cholecalcifero l (vitamin D3) PO DAILY 06/02/22 [History Confirmed 06/02/22] (units unknown) (unknown) (unknown) (no date) (unknown) (unknown) current occupational exposures/hazards: No (units unknown) (unknown) (unknown) (no date) (unknown) (unknown) daily servings fruits/ve-4 (units unknown) (unknown) (unknown) (no date) (unknown) (unknown) do you feel sa fe at home: Yes (units unknown) (unknown) (unknown) (no date) (unknown) (unknown) during the pas t year weight has: remained stable (units unknown) (unknown) (unknown) (no date) (unknown) (unknown) education leve l: high school (units unknown) (unknown) (unknown) (no date) (unknown) (unknown) jj/jainism : Anabaptism (units unknown) (unknown) (unknown) (no date) (unknown) (unknown) ferrous glucon ate 324 mg (37.5 mg iron) tablet 324 mg PO DAILY 12/22/19 [History (units unknown) (unknown) (unknown) (no date) (unknown) (unknown) frequency: ro s not exercise (units unknown) (unknown) (unknown) (no date) (unknown) (unknown) have occurred. If there are any questions, please contact the Medical Records (units unknown) (unknown) (unknown) (no date) (unknown) (unknown) household memb ers: spouse and children (units unknown) (unknown) (unknown) (no date) (unknown) (unknown) housing: house (unit s unknown) (unknown) (unknown) (no date) (unknown) (unknown) liver enzymes. (unit s unknown) (unknown) (unknown) (no date) (unknown) (unknown) lives independently: Yes (units unknown) (unknown) (unknown) (no date) (unknown) (unknown) marital status : (units unknown) (unknown) (unknown) (no date) (unknown) (unknown) may occur. 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 Please (units unknown) (unknown) (unknown) (no date) (unknown) (unknown) pets and anima ls: Yes (Dogs + cats: safe/ aware.) (units unknown) (unknown) (unknown) (no date) (unknown) (unknown) read the note carefully and recognize, using context, where these substitutions (units unknown) (unknown) (unknown) (no date) (unknown) (unknown) seatbelt use: always (units unknown) (unknown) (unknown) (no date) (unknown) (unknown) second hand exposure: No (units unknown) (unknown) (unknown) (no date) (unknown) (unknown) software. Alth ough every effort is made to edit content, advanced seal delivery system errors (units unknown) (unknown) (unknown) (no date) (unknown) (unknown) special jj needs: No (units unknown) (unknown) (unknown) (no date) (unknown) (unknown) substance use type: does not use (units unknown) (unknown) (unknown) (no date) (unknown) (unknown) well-balanced diet: about half the time ('Hard to eat protein lately.' ) (units unknown) (unknown) Result panel 37 (unknown) (no date) (unknown) (unknown) (no value) (units unknown) (unknown) (unknown) (no date) (unknown) (unknown) [id number] (units unknown) (unknown) (unknown) (no date) (unknown) (unknown) 06/02/22 (units unknown) (unknown) (unknown) (no date) (unknown) (unknown) 08:08 (units unknown) (unknown) (unknown) (no date) (unknown) (unknown) 36 year old fe male presents to clinic to establish care and review elevated (units unknown) (unknown) (unknown) (no date) (unknown) (unknown) Acne (-1998) (units unknown) (unknown) (unknown) (no date) (unknown) (unknown) Age/Sex: 36 / F Date of Service: (units unknown) (unknown) (unknown) (no date) (unknown) (unknown) Allergies (units unknown) (unknown) (unknown) (no date) (unknown) (unknown) Allergies: Reviewed (units unknown) (unknown) (unknown) (no date) (unknown) (unknown) [place] [address] (units unknown) (unknown) (unknown) (no date) (unknown) (unknown) Anemia (units unknown) (unknown) (unknown) (no date) (unknown) (unknown) Anesthesia (units unknown) (unknown) (unknown) (no date) (unknown) (unknown) Attending Dr: Zainab Rosas D.O. (units unknown) (unknown) (unknown) (no date) (unknown) (unknown) BMI 37.3 (units unknown) (unknown) (unknown) (no date) (unknown) (unknown) BP 119/74 (units unknown) (unknown) (unknown) (no date) (unknown) (unknown) Blood Pressure Location Lt brachial (units unknown) (unknown) (unknown) (no date) (unknown) (unknown) Brother Down syndrome (units unknown) (unknown) (unknown) (no date) (unknown) (unknown) Cancer (units unknown) (unknown) (unknown) (no date) (unknown) (unknown) Cardiovascular : Negative.? (units unknown) (unknown) (unknown) (no date) (unknown) (unknown) Chief Complain t: establish care (units unknown) (unknown) (unknown) (no date) (unknown) (unknown) Confirmed 06/02/22] (units unknown) (unknown) (unknown) (no date) (unknown) (unknown) Constitutional : Negative.? (units unknown) (unknown) (unknown) (no date) (unknown) (unknown) : 5 Acct:[id number] (units unknown) (unknown) (unknown) (no date) (unknown) (unknown) Dept at . (units unknown) (unknown) (unknown) (no date) (unknown) (unknown) Diet and Exercise (u nits unknown) (unknown) (unknown) (no date) (unknown) (unknown) Documented By: Zainab Rosas 06/02/22 0803 (units unknown) (unknown) (unknown) (no date) (unknown) (unknown) Draft (units unknown) (unknown) (unknown) (no date) (unknown) (unknown) Dysphagia (2005) (un its unknown) (unknown) (unknown) (no date) (unknown) (unknown) Elevated liver enzymes (01/2019) (units unknown) (unknown) (unknown) (no date) (unknown) (unknown) Endocrine: Negative.? (units unknown) (unknown) (unknown) (no date) (unknown) (unknown) Family History (units unknown) (unknown) (unknown) (no date) (unknown) (unknown) Family Practic e Office Visit (units unknown) (unknown) (unknown) (no date) (unknown) (unknown) Family estrangement (units unknown) (unknown) (unknown) (no date) (unknown) (unknown) Father d Liver cancer (units unknown) (unknown) (unknown) (no date) (unknown) (unknown) [facility] (units unknown) (unknown) (unknown) (no date) (unknown) (unknown) GERD (gastroesophageal reflux disease) (-2006) (units unknown) (unknown) (unknown) (no date) (unknown) (unknown) Gallstones (-2018) ( units unknown) (unknown) (unknown) (no date) (unknown) (unknown) Gastrointestin al: Negative.? (units unknown) (unknown) (unknown) (no date) (unknown) (unknown) Genitourinary: Negative.? (units unknown) (unknown) (unknown) (no date) (unknown) (unknown) Glaucoma (units unknown) (unknown) (unknown) (no date) (unknown) (unknown) Grandfather Cancer (units unknown) (unknown) (unknown) (no date) (unknown) (unknown) Grandfather Unknown whether patient has any health problems (units unknown) (unknown) (unknown) (no date) (unknown) (unknown) Grandmother Family estrangement (units unknown) (unknown) (unknown) (no date) (unknown) (unknown) Grandmother No problems noted. (units unknown) (unknown) (unknown) (no date) (unknown) (unknown) Health Managem ent reviewed with patient: Yes (units unknown) (unknown) (unknown) (no date) (unknown) (unknown) Health Management (u nits unknown) (unknown) (unknown) (no date) (unknown) (unknown) Heavy menstrua l period () (units unknown) (unknown) (unknown) (no date) (unknown) (unknown) Height 5 ft 3.5 in ( units unknown) (unknown) (unknown) (no date) (unknown) (unknown) History of cholecystectomy () (units unknown) (unknown) (unknown) (no date) (unknown) (unknown) I reviewed the patient's Past Medical History, Problem List, Medications and (units unknown) (unknown) (unknown) (no date) (unknown) (unknown) Intake Note: (units unknown) (unknown) (unknown) (no date) (unknown) (unknown) Intake perform ed by: Christy Hawthorne (units unknown) (unknown) (unknown) (no date) (unknown) (unknown) Intake (units unknown) (unknown) (unknown) (no date) (unknown) (unknown) Intake- [place] al Staff (units unknown) (unknown) (unknown) (no date) (unknown) (unknown) Irregular mens trual cycle () (units unknown) (unknown) (unknown) (no date) (unknown) (unknown) Loc: [facility] (units unknown) (unknown) (unknown) (no date) (unknown) (unknown) Medical Histor y (units unknown) (unknown) (unknown) (no date) (unknown) (unknown) Medications (units unknown) (unknown) (unknown) (no date) (unknown) (unknown) Medications: Reconciled (units unknown) (unknown) (unknown) (no date) (unknown) (unknown) Migraines (units unknown) (unknown) (unknown) (no date) (unknown) (unknown) Mother Rheumat oid arthritis (units unknown) (unknown) (unknown) (no date) (unknown) (unknown) Neurological: Negative.? (units unknown) (unknown) (unknown) (no date) (unknown) (unknown) No Known Drug Allergies Allergy (Verified 06/02/22 08:07) (units unknown) (unknown) (unknown) (no date) (unknown) (unknown) Note (units unknown) (unknown) (unknown) (no date) (unknown) (unknown) Note: (units unknown) (unknown) (unknown) (no date) (unknown) (unknown) Notes (units unknown) (unknown) (unknown) (no date) (unknown) (unknown) Objective: (units unknown) (unknown) (unknown) (no date) (unknown) (unknown) Oxygen Deliver y Method room air (units unknown) (unknown) (unknown) (no date) (unknown) (unknown) PFSH (units unknown) (unknown) (unknown) (no date) (unknown) (unknown) Painful menstr ual periods (-1998) (units unknown) (unknown) (unknown) (no date) (unknown) (unknown) Patient: Haydee Woodson MR#: [id number] (units unknown) (unknown) (unknown) (no date) (unknown) (unknown) Position Sitting (un its unknown) (unknown) (unknown) (no date) (unknown) (unknown) (units unknown) (unknown) (unknown) (no date) (unknown) (unknown) Psoriasis (units unknown) (unknown) (unknown) (no date) (unknown) (unknown) Pulse 86 (units unknown) (unknown) (unknown) (no date) (unknown) (unknown) Pulse Oximetry (%) 98 (units unknown) (unknown) (unknown) (no date) (unknown) (unknown) Pulse Source Monitor (units unknown) (unknown) (unknown) (no date) (unknown) (unknown) Reason For Visit (un its unknown) (unknown) (unknown) (no date) (unknown) (unknown) Regurgitation of food (units unknown) (unknown) (unknown) (no date) (unknown) (unknown) Respiratory: Negative.? (units unknown) (unknown) (unknown) (no date) (unknown) (unknown) Review of Systems: ( units unknown) (unknown) (unknown) (no date) (unknown) (unknown) Safety (units unknown) (unknown) (unknown) (no date) (unknown) (unknown) Signed By: (units unknown) (unknown) (unknown) (no date) (unknown) (unknown) Sister Glaucoma (uni ts unknown) (unknown) (unknown) (no date) (unknown) (unknown) Sister History of cholecystectomy (units unknown) (unknown) (unknown) (no date) (unknown) (unknown) Smoking Status : Never smoker (units unknown) (unknown) (unknown) (no date) (unknown) (unknown) Social History (including tobacco use status). (units unknown) (unknown) (unknown) (no date) (unknown) (unknown) Social History (unit s unknown) (unknown) (unknown) (no date) (unknown) (unknown) Subjective: (units unknown) (unknown) (unknown) (no date) (unknown) (unknown) Surgical Histo ry (units unknown) (unknown) (unknown) (no date) (unknown) (unknown) Temp 97.1 F L (units unknown) (unknown) (unknown) (no date) (unknown) (unknown) Temp Source Temporal Artery Scan (units unknown) (unknown) (unknown) (no date) (unknown) (unknown) This note may have been all or partially generated using voice recognition (units unknown) (unknown) (unknown) (no date) (unknown) (unknown) Threatened (units unknown) (unknown) (unknown) (no date) (unknown) (unknown) Tobacco + Subs tance Use (units unknown) (unknown) (unknown) (no date) (unknown) (unknown) Tobacco Status (unit s unknown) (unknown) (unknown) (no date) (unknown) (unknown) Type(s) of exercise: normal ROM and activity (Busy mom, with young children) (units unknown) (unknown) (unknown) (no date) (unknown) (unknown) Unknown whethe r patient has any health problems (units unknown) (unknown) (unknown) (no date) (unknown) (unknown) Uterine cancer (unit s unknown) (unknown) (unknown) (no date) (unknown) (unknown) 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 There may be (units unknown) (unknown) (unknown) (no date) (unknown) (unknown) Weight 214 lb (units unknown) (unknown) (unknown) (no date) (unknown) (unknown) Petroleum teeth removed () (units unknown) (unknown) (unknown) (no date) (unknown) (unknown) [] (units unknown) (unknown) (unknown) (no date) (unknown) (unknown) alcohol intake : never (units unknown) (unknown) (unknown) (no date) (unknown) (unknown) caffeine: Yes (1 decaf daily.) (units unknown) (unknown) (unknown) (no date) (unknown) (unknown) caregiver/supp ort person: No (units unknown) (unknown) (unknown) (no date) (unknown) (unknown) cholecalcifero l (vitamin D3) PO DAILY 06/02/22 [History Confirmed 06/02/22] (units unknown) (unknown) (unknown) (no date) (unknown) (unknown) current occupational exposures/hazards: No (units unknown) (unknown) (unknown) (no date) (unknown) (unknown) daily servings fruits/ve-4 (units unknown) (unknown) (unknown) (no date) (unknown) (unknown) do you feel sa fe at home: Yes (units unknown) (unknown) (unknown) (no date) (unknown) (unknown) during the pas t year weight has: remained stable (units unknown) (unknown) (unknown) (no date) (unknown) (unknown) education leve l: high school (units unknown) (unknown) (unknown) (no date) (unknown) (unknown) jj/jainism : Anabaptism (units unknown) (unknown) (unknown) (no date) (unknown) (unknown) ferrous glucon ate 324 mg (37.5 mg iron) tablet 324 mg PO DAILY 12/22/19 [History (units unknown) (unknown) (unknown) (no date) (unknown) (unknown) frequency: ro s not exercise (units unknown) (unknown) (unknown) (no date) (unknown) (unknown) have occurred. If there are any questions, please contact the Medical Records (units unknown) (unknown) (unknown) (no date) (unknown) (unknown) household memb ers: spouse and children (units unknown) (unknown) (unknown) (no date) (unknown) (unknown) housing: house (unit s unknown) (unknown) (unknown) (no date) (unknown) (unknown) liver enzymes. (unit s unknown) (unknown) (unknown) (no date) (unknown) (unknown) lives independently: Yes (units unknown) (unknown) (unknown) (no date) (unknown) (unknown) marital status : (units unknown) (unknown) (unknown) (no date) (unknown) (unknown) may occur. 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 Please (units unknown) (unknown) (unknown) (no date) (unknown) (unknown) pets and anima ls: Yes (Dogs + cats: safe/ aware.) (units unknown) (unknown) (unknown) (no date) (unknown) (unknown) read the note carefully and recognize, using context, where these substitutions (units unknown) (unknown) (unknown) (no date) (unknown) (unknown) seatbelt use: always (units unknown) (unknown) (unknown) (no date) (unknown) (unknown) second hand exposure: No (units unknown) (unknown) (unknown) (no date) (unknown) (unknown) software. Alth ough every effort is made to edit content, advanced seal delivery system errors (units unknown) (unknown) (unknown) (no date) (unknown) (unknown) special jj needs: No (units unknown) (unknown) (unknown) (no date) (unknown) (unknown) substance use type: does not use (units unknown) (unknown) (unknown) (no date) (unknown) (unknown) typographical errors as a result. (units unknown) (unknown) (unknown) (no date) (unknown) (unknown) well-balanced diet: about half the time ('Hard to eat protein lately.' ) (units unknown) (unknown) Result panel 38 (unknown) (no date) (unknown) (unknown) (no value) (units unknown) (unknown) (unknown) (no date) (unknown) (unknown) (1) Elevated l iver enzymes: (units unknown) (unknown) (unknown) (no date) (unknown) (unknown) (2) Irregular menstrual cycle: (units unknown) (unknown) (unknown) (no date) (unknown) (unknown) (3) Fatigue: (units unknown) (unknown) (unknown) (no date) (unknown) (unknown) (4) Snoring: (units unknown) (unknown) (unknown) (no date) (unknown) (unknown) (5) Leg swelling: (u nits unknown) (unknown) (unknown) (no date) (unknown) (unknown) - Irregular menstruation, unspecified, R06.83 - Snoring, R53.83 - Other fatigue, (units unknown) (unknown) (unknown) (no date) (unknown) (unknown) - Other fatigu e, R74.8 - Abnormal levels of other serum enzymes (units unknown) (unknown) (unknown) (no date) (unknown) (unknown) -further evalu ation as we work her up further. (units unknown) (unknown) (unknown) (no date) (unknown) (unknown) -labs today. Further evaluation if trending up. (units unknown) (unknown) (unknown) (no date) (unknown) (unknown) -sleep study pending (units unknown) (unknown) (unknown) (no date) (unknown) (unknown) [id number] (units unknown) (unknown) (unknown) (no date) (unknown) (unknown) 06/02/22 0832 (units unknown) (unknown) (unknown) (no date) (unknown) (unknown) 06/02/22 (units unknown) (unknown) (unknown) (no date) (unknown) (unknown) 08:08 (units unknown) (unknown) (unknown) (no date) (unknown) (unknown) 1. Elevated du ring . 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 Think likel y related to her . She is getting more consistent (units unknown) (unknown) (unknown) (no date) (unknown) (unknown) 3/4. Likely multifactorial. With deconditioning, sleep apnea contributing. (units unknown) (unknown) (unknown) (no date) (unknown) (unknown) 36 year old fe male presents to clinic to establish care and review elevated (units unknown) (unknown) (unknown) (no date) (unknown) (unknown) 5. I think lik axel venous insufficiency. Again she will work on healthy (units unknown) (unknown) (unknown) (no date) (unknown) (unknown) Abnormal level s of other serum enzymes (units unknown) (unknown) (unknown) (no date) (unknown) (unknown) Acne (-1998) (units unknown) (unknown) (unknown) (no date) (unknown) (unknown) Age/Sex: 36 / F Date of Service: (units unknown) (unknown) (unknown) (no date) (unknown) (unknown) Allergies (units unknown) (unknown) (unknown) (no date) (unknown) (unknown) Allergies: Reviewed (units unknown) (unknown) (unknown) (no date) (unknown) (unknown) [place] [id number] (units unknown) (unknown) (unknown) (no date) (unknown) (unknown) Anemia (units unknown) (unknown) (unknown) (no date) (unknown) (unknown) Anesthesia (units unknown) (unknown) (unknown) (no date) (unknown) (unknown) Assessment + Plan (u nits unknown) (unknown) (unknown) (no date) (unknown) (unknown) Attending Dr: Zainab Rosas DAwildaO. (units unknown) (unknown) (unknown) (no date) (unknown) (unknown) BMI 37.3 (units unknown) (unknown) (unknown) (no date) (unknown) (unknown) BP 119/74 (units unknown) (unknown) (unknown) (no date) (unknown) (unknown) Blood Pressure Location Lt brachial (units unknown) (unknown) (unknown) (no date) (unknown) (unknown) Brother Down syndrome (units unknown) (unknown) (unknown) (no date) (unknown) (unknown) CARDIAC: Regul ar rate and rhythm. S1, S2 normal, no murmur.? No edema. (units unknown) (unknown) (unknown) (no date) (unknown) (unknown) CHEST: Normal respiratory effort (units unknown) (unknown) (unknown) (no date) (unknown) (unknown) Cancer (units unknown) (unknown) (unknown) (no date) (unknown) (unknown) Chief Complain t: establish care (units unknown) (unknown) (unknown) (no date) (unknown) (unknown) Complete Blood Count AUTO DIFF Today M79.89 - Other specified soft tissue (units unknown) (unknown) (unknown) (no date) (unknown) (unknown) Comprehensive Metabolic Panel Today M79.89 - Other specified soft tissue (units unknown) (unknown) (unknown) (no date) (unknown) (unknown) Confirmed 06/02/22] (units unknown) (unknown) (unknown) (no date) (unknown) (unknown) Constitutional : Negative.? (units unknown) (unknown) (unknown) (no date) (unknown) (unknown) : 5 Acct:[id number] (units unknown) (unknown) (unknown) (no date) (unknown) (unknown) Dept at . (units unknown) (unknown) (unknown) (no date) (unknown) (unknown) Diet and Exercise (u nits unknown) (unknown) (unknown) (no date) (unknown) (unknown) Discussed heal thy lifestyle. Initiating a regular exercise program. (units unknown) (unknown) (unknown) (no date) (unknown) (unknown) Documented By: Zainab Rosas 06/02/22 0803 (units unknown) (unknown) (unknown) (no date) (unknown) (unknown) Dysphagia (2005) (un its unknown) (unknown) (unknown) (no date) (unknown) (unknown) EYES: PERRL, E VIKASH and nonicteric (units unknown) (unknown) (unknown) (no date) (unknown) (unknown) Elevated liver enzymes (01/2019) (units unknown) (unknown) (unknown) (no date) (unknown) (unknown) Family History (units unknown) (unknown) (unknown) (no date) (unknown) (unknown) Family Practic e Office Visit (units unknown) (unknown) (unknown) (no date) (unknown) (unknown) Family estrangement (units unknown) (unknown) (unknown) (no date) (unknown) (unknown) Father d Liver cancer (units unknown) (unknown) (unknown) (no date) (unknown) (unknown) Fatigue type: unspecified Qualified Code(s): R53.83 - Other fatigue (units unknown) (unknown) (unknown) (no date) (unknown) (unknown) Ferritin Today M79.89 - Other specified soft tissue disorders, N92.6 - Irregular (units unknown) (unknown) (unknown) (no date) (unknown) (unknown) [facility] (units unknown) (unknown) (unknown) (no date) (unknown) (unknown) G5, P5 female. She is 1 year . She is still but trying (units unknown) (unknown) (unknown) (no date) (unknown) (unknown) GENERAL: Well developed, well nourished.? Cooperative with exam.? Patient is in (units unknown) (unknown) (unknown) (no date) (unknown) (unknown) GERD (gastroesophageal reflux disease) (-2005) (units unknown) (unknown) (unknown) (no date) (unknown) (unknown) Gallstones () ( units unknown) (unknown) (unknown) (no date) (unknown) (unknown) Gastrointestin al: Negative.? (units unknown) (unknown) (unknown) (no date) (unknown) (unknown) Genitourinary: Negative.? (units unknown) (unknown) (unknown) (no date) (unknown) (unknown) Glaucoma (units unknown) (unknown) (unknown) (no date) (unknown) (unknown) Grandfather Cancer (units unknown) (unknown) (unknown) (no date) (unknown) (unknown) Grandfather Unknown whether patient has any health problems (units unknown) (unknown) (unknown) (no date) (unknown) (unknown) Grandmother Family estrangement (units unknown) (unknown) (unknown) (no date) (unknown) (unknown) Grandmother No problems noted. (units unknown) (unknown) (unknown) (no date) (unknown) (unknown) HEAD: Atraumat ic, Normocephalic (units unknown) (unknown) (unknown) (no date) (unknown) (unknown) Health Managem ent reviewed with patient: Yes (units unknown) (unknown) (unknown) (no date) (unknown) (unknown) Health Management (u nits unknown) (unknown) (unknown) (no date) (unknown) (unknown) Heavy menstrua l period () (units unknown) (unknown) (unknown) (no date) (unknown) (unknown) Height 5 ft 3.5 in ( units unknown) (unknown) (unknown) (no date) (unknown) (unknown) Hemoglobin A1C % w Est Avg Glu Today M79.89 - Other specified soft tissue (units unknown) (unknown) (unknown) (no date) (unknown) (unknown) History of cholecystectomy () (units unknown) (unknown) (unknown) (no date) (unknown) (unknown) I reviewed the patient's Past Medical History, Problem List, Medications and (units unknown) (unknown) (unknown) (no date) (unknown) (unknown) Intake Note: (units unknown) (unknown) (unknown) (no date) (unknown) (unknown) Intake perform ed by: PrinceChristy (units unknown) (unknown) (unknown) (no date) (unknown) (unknown) Intake (units unknown) (unknown) (unknown) (no date) (unknown) (unknown) Intake- Paulette wilde Staff (units unknown) (unknown) (unknown) (no date) (unknown) (unknown) Irregular mens trual cycle (-1998) (units unknown) (unknown) (unknown) (no date) (unknown) (unknown) Irregular menstruation, unspecified, R06.83 - Snoring, R53.83 - Other fatigue, (units unknown) (unknown) (unknown) (no date) (unknown) (unknown) LUNGS: Clear a ll lung muñoz, Bilaterally (units unknown) (unknown) (unknown) (no date) (unknown) (unknown) Lipid Panel To day M79.89 - Other specified soft tissue disorders, N92.6 (units unknown) (unknown) (unknown) (no date) (unknown) (unknown) Loc: [facility] (units unknown) (unknown) (unknown) (no date) (unknown) (unknown) [place]: Normal gait. (units unknown) (unknown) (unknown) (no date) (unknown) (unknown) Medical Histor y (units unknown) (unknown) (unknown) (no date) (unknown) (unknown) Medications (units unknown) (unknown) (unknown) (no date) (unknown) (unknown) Medications: Reconciled (units unknown) (unknown) (unknown) (no date) (unknown) (unknown) Migraines (units unknown) (unknown) (unknown) (no date) (unknown) (unknown) Mother Rheumat oid arthritis (units unknown) (unknown) (unknown) (no date) (unknown) (unknown) NECK: Full ran ge of motion, lymphadenopathy absent, supple (units unknown) (unknown) (unknown) (no date) (unknown) (unknown) NEURO EXAM: Al ert and oriented x 3.? (units unknown) (unknown) (unknown) (no date) (unknown) (unknown) Neurological: Negative.? (units unknown) (unknown) (unknown) (no date) (unknown) (unknown) No Known Drug Allergies Allergy (Verified 06/02/22 08:07) (units unknown) (unknown) (unknown) (no date) (unknown) (unknown) Note (units unknown) (unknown) (unknown) (no date) (unknown) (unknown) Note: (units unknown) (unknown) (unknown) (no date) (unknown) (unknown) Notes (units unknown) (unknown) (unknown) (no date) (unknown) (unknown) Objective: (units unknown) (unknown) (unknown) (no date) (unknown) (unknown) Orders (units unknown) (unknown) (unknown) (no date) (unknown) (unknown) Orders: (units unknown) (unknown) (unknown) (no date) (unknown) (unknown) Oxygen Deliver y Method room air (units unknown) (unknown) (unknown) (no date) (unknown) (unknown) PFSH (units unknown) (unknown) (unknown) (no date) (unknown) (unknown) PSYCH: judgeme nt normal, orientation normal, affect/mood normal and memory (units unknown) (unknown) (unknown) (no date) (unknown) (unknown) Painful menstr ual periods (-1998) (units unknown) (unknown) (unknown) (no date) (unknown) (unknown) Patient is her e to establish care. She has several issues. (units unknown) (unknown) (unknown) (no date) (unknown) (unknown) Patient: Haydee Woodson MR#: [id number] (units unknown) (unknown) (unknown) (no date) (unknown) (unknown) Plan (units unknown) (unknown) (unknown) (no date) (unknown) (unknown) Position Sitting (un its unknown) (unknown) (unknown) (no date) (unknown) (unknown) (units unknown) (unknown) (unknown) (no date) (unknown) (unknown) Psoriasis (units unknown) (unknown) (unknown) (no date) (unknown) (unknown) Pulse 86 (units unknown) (unknown) (unknown) (no date) (unknown) (unknown) Pulse Oximetry (%) 98 (units unknown) (unknown) (unknown) (no date) (unknown) (unknown) Pulse Source Monitor (units unknown) (unknown) (unknown) (no date) (unknown) (unknown) Qualifiers: (units unknown) (unknown) (unknown) (no date) (unknown) (unknown) R74.8 - Abnorm al levels of other serum enzymes (units unknown) (unknown) (unknown) (no date) (unknown) (unknown) Reason For Visit (un its unknown) (unknown) (unknown) (no date) (unknown) (unknown) Referral Sleep Medicine R06.83 - Snoring, R53.83 - Other fatigue (units unknown) (unknown) (unknown) (no date) (unknown) (unknown) Referrals (units unknown) (unknown) (unknown) (no date) (unknown) (unknown) Regurgitation of food (units unknown) (unknown) (unknown) (no date) (unknown) (unknown) Respiratory: Negative.? (units unknown) (unknown) (unknown) (no date) (unknown) (unknown) Review of Systems: ( units unknown) (unknown) (unknown) (no date) (unknown) (unknown) SKIN:? No rash es on face or arms. (units unknown) (unknown) (unknown) (no date) (unknown) (unknown) Safety (units unknown) (unknown) (unknown) (no date) (unknown) (unknown) Signed By: <Electronically signed by Zainab Rosas> (units unknown) (unknown) (unknown) (no date) (unknown) (unknown) Signed (units unknown) (unknown) (unknown) (no date) (unknown) (unknown) Sister Glaucoma (uni ts unknown) (unknown) (unknown) (no date) (unknown) (unknown) Sister History of cholecystectomy (units unknown) (unknown) (unknown) (no date) (unknown) (unknown) Smoking Status : Never smoker (units unknown) (unknown) (unknown) (no date) (unknown) (unknown) Social History (including tobacco use status). (units unknown) (unknown) (unknown) (no date) (unknown) (unknown) Social History (unit s unknown) (unknown) (unknown) (no date) (unknown) (unknown) Status: Acute (units unknown) (unknown) (unknown) (no date) (unknown) (unknown) Status: Chronic (uni ts unknown) (unknown) (unknown) (no date) (unknown) (unknown) Subjective: (units unknown) (unknown) (unknown) (no date) (unknown) (unknown) Surgical Histo ry (units unknown) (unknown) (unknown) (no date) (unknown) (unknown) TSH w/ Reflex to FT4 Today M79.89 - Other specified soft tissue disorders, N92.6 (units unknown) (unknown) (unknown) (no date) (unknown) (unknown) Temp 97.1 F L (units unknown) (unknown) (unknown) (no date) (unknown) (unknown) Temp Source Temporal Artery Scan (units unknown) (unknown) (unknown) (no date) (unknown) (unknown) This note may have been all or partially generated using voice recognition (units unknown) (unknown) (unknown) (no date) (unknown) (unknown) Threatened (units unknown) (unknown) (unknown) (no date) (unknown) (unknown) Tobacco + Subs tance Use (units unknown) (unknown) (unknown) (no date) (unknown) (unknown) Tobacco Status (unit s unknown) (unknown) (unknown) (no date) (unknown) (unknown) Type(s) of exercise: normal ROM and activity (Busy mom, with young children) (units unknown) (unknown) (unknown) (no date) (unknown) (unknown) Unknown whethe r patient has any health problems (units unknown) (unknown) (unknown) (no date) (unknown) (unknown) Uterine cancer (unit s unknown) (unknown) (unknown) (no date) (unknown) (unknown) 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 There may be (units unknown) (unknown) (unknown) (no date) (unknown) (unknown) Weight 214 lb (units unknown) (unknown) (unknown) (no date) (unknown) (unknown) Petroleum teeth removed () (units unknown) (unknown) (unknown) (no date) (unknown) (unknown) alcohol intake : never (units unknown) (unknown) (unknown) (no date) (unknown) (unknown) control pills. She does state that she does have some painful periods, (units unknown) (unknown) (unknown) (no date) (unknown) (unknown) caffeine: Yes (1 decaf daily.) (units unknown) (unknown) (unknown) (no date) (unknown) (unknown) caregiver/supp ort person: No (units unknown) (unknown) (unknown) (no date) (unknown) (unknown) cholecalcifero l (vitamin D3) PO DAILY 06/02/22 [History Confirmed 06/02/22] (units unknown) (unknown) (unknown) (no date) (unknown) (unknown) current occupational exposures/hazards: No (units unknown) (unknown) (unknown) (no date) (unknown) (unknown) cycles as she is weaning. Did discuss possible control pill to help (units unknown) (unknown) (unknown) (no date) (unknown) (unknown) daily servings fruits/ve-4 (units unknown) (unknown) (unknown) (no date) (unknown) (unknown) day and improv e overnight. She denies any shortness of breath, chest pains, (units unknown) (unknown) (unknown) (no date) (unknown) (unknown) disorders, N92 .6 - Irregular menstruation, unspecified, R06.83 - Snoring, R53.83 (units unknown) (unknown) (unknown) (no date) (unknown) (unknown) do you feel sa fe at home: Yes (units unknown) (unknown) (unknown) (no date) (unknown) (unknown) during the pas t year weight has: remained stable (units unknown) (unknown) (unknown) (no date) (unknown) (unknown) education leve l: high school (units unknown) (unknown) (unknown) (no date) (unknown) (unknown) evated. No cau se was found. Her liver enzymes normalize 2 months later. Her (units unknown) (unknown) (unknown) (no date) (unknown) (unknown) exercising at this point. She does complain that her legs swell throughout the (units unknown) (unknown) (unknown) (no date) (unknown) (unknown) jj/jainism : Anabaptism (units unknown) (unknown) (unknown) (no date) (unknown) (unknown) ferrous glucon ate 324 mg (37.5 mg iron) tablet 324 mg PO DAILY 12/22/19 [History (units unknown) (unknown) (unknown) (no date) (unknown) (unknown) frequency: ro s not exercise (units unknown) (unknown) (unknown) (no date) (unknown) (unknown) further discussion. (units unknown) (unknown) (unknown) (no date) (unknown) (unknown) have occurred. If there are any questions, please contact the Medical Records (units unknown) (unknown) (unknown) (no date) (unknown) (unknown) heart palpitations. (units unknown) (unknown) (unknown) (no date) (unknown) (unknown) household memb ers: spouse and children (units unknown) (unknown) (unknown) (no date) (unknown) (unknown) housing: house (unit s unknown) (unknown) (unknown) (no date) (unknown) (unknown) lifestyle. Fur ther evaluation if needed. (units unknown) (unknown) (unknown) (no date) (unknown) (unknown) liver enzymes. (unit s unknown) (unknown) (unknown) (no date) (unknown) (unknown) lives independently: Yes (units unknown) (unknown) (unknown) (no date) (unknown) (unknown) marital status : (units unknown) (unknown) (unknown) (no date) (unknown) (unknown) may occur. Occasional wrong-word or 'sound-alike' substitutions may have (units unknown) (unknown) (unknown) (no date) (unknown) (unknown) menstrual cycl es. This is a chronic problem for her. She can not tolerate (units unknown) (unknown) (unknown) (no date) (unknown) (unknown) menstruation, unspecified, R06.83 - Snoring, R53.83 - Other fatigue, R74.8 (units unknown) (unknown) (unknown) (no date) (unknown) (unknown) no apparent distress. 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 Please (units unknown) (unknown) (unknown) (no date) (unknown) (unknown) pain with intercourse. Again these are all chronic issues for her. She is not (units unknown) (unknown) (unknown) (no date) (unknown) (unknown) pets and anima ls: Yes (Dogs + cats: safe/ aware.) (units unknown) (unknown) (unknown) (no date) (unknown) (unknown) read the note carefully and recognize, using context, where these substitutions (units unknown) (unknown) (unknown) (no date) (unknown) (unknown) regulate her c ycle. She can not tolerate these in the past. We will continue (units unknown) (unknown) (unknown) (no date) (unknown) (unknown) seatbelt use: always (units unknown) (unknown) (unknown) (no date) (unknown) (unknown) second hand exposure: No (units unknown) (unknown) (unknown) (no date) (unknown) (unknown) software. Alth ough every effort is made to edit content, advanced seal delivery system errors (units unknown) (unknown) (unknown) (no date) (unknown) (unknown) special jj needs: No (units unknown) (unknown) (unknown) (no date) (unknown) (unknown) states that tc gil is feeling very fatigued since the . She has irregular (units unknown) (unknown) (unknown) (no date) (unknown) (unknown) steatosis. Her liver functions normalize 2 months later and her ultrasound of (units unknown) (unknown) (unknown) (no date) (unknown) (unknown) substance use type: does not use (units unknown) (unknown) (unknown) (no date) (unknown) (unknown) time was rani l. She does not drink alcohol (units unknown) (unknown) (unknown) (no date) (unknown) (unknown) to monitor her cycle. If it does not normalize we can consider glost kiln placer referral for (units unknown) (unknown) (unknown) (no date) (unknown) (unknown) to wean. She s tates that during her she her liver enzymes are very el (units unknown) (unknown) (unknown) (no date) (unknown) (unknown) typographical errors as a result. (units unknown) (unknown) (unknown) (no date) (unknown) (unknown) ultrasound of the time was also reassuring. She does not drink alcohol. She (units unknown) (unknown) (unknown) (no date) (unknown) (unknown) well-balanced diet: about half the time ('Hard to eat protein lately.' ) (units unknown) (unknown) Result panel 39 (unknown) (no date) (unknown) (unknown) 0.9 % (unknown ) (unknown) (no date) (unknown) (unknown) 1.7 % (unknown ) (unknown) (no date) (unknown) (unknown) 100 /ul (unknown ) (unknown) (no date) (unknown) (unknown) 12.0 g/dl (unknown ) (unknown) (no date) (unknown) (unknown) 15.4 % (unknown ) (unknown) (no date) (unknown) (unknown) 200 /ul (unknown ) (unknown) (no date) (unknown) (unknown) 26.7 pg (unknown ) (unknown) (no date) (unknown) (unknown) 33.2 % (unknown ) (unknown) (no date) (unknown) (unknown) 3300 /ul (unknown ) (unknown) (no date) (unknown) (unknown) 34.3 % (unknown ) (unknown) (no date) (unknown) (unknown) 36.0 % (unknown ) (unknown) (no date) (unknown) (unknown) 370 x10 3/ul (unknow n) (unknown) (no date) (unknown) (unknown) 4.47 x10 6/ul (unknow n) (unknown) (no date) (unknown) (unknown) 5500 /ul (unknown ) (unknown) (no date) (unknown) (unknown) 56.3 % (unknown ) (unknown) (no date) (unknown) (unknown) 6.8 % (unknown ) (unknown) (no date) (unknown) (unknown) 700 /ul (unknown ) (unknown) (no date) (unknown) (unknown) 80.6 fl (unknown ) (unknown) (no date) (unknown) (unknown) 9.8 x10 3/ul (unknow n) Result panel 40 (unknown) (no date) (unknown) (unknown) 5.6 % (unknown ) (unknown) (no date) (unknown) (unknown) 5.6 % (unknown ) Result panel 41 (unknown) (no date) (unknown) (unknown) > 60 ml/min (unknown ) (unknown) (no date) (unknown) (unknown) > 60 ml/min (unknown ) (unknown) (no date) (unknown) (unknown) 0.3 mg/dl (unknown ) (unknown) (no date) (unknown) (unknown) 0.67 mg/dl (unknown ) (unknown) (no date) (unknown) (unknown) 1.1 (units unknown) (unknown) (unknown) (no date) (unknown) (unknown) 103 mmol/l (unknown ) (unknown) (no date) (unknown) (unknown) 118 u/l (unknown ) (unknown) (no date) (unknown) (unknown) 138 mmol/l (unknown ) (unknown) (no date) (unknown) (unknown) 141 mg/dl (unknown ) (unknown) (no date) (unknown) (unknown) 141 mg/dl (unknown ) (unknown) (no date) (unknown) (unknown) 16 mg/dl (unknown ) (unknown) (no date) (unknown) (unknown) 17 iu/l (unknown ) (unknown) (no date) (unknown) (unknown) 187 mg/dl (unknown ) (unknown) (no date) (unknown) (unknown) 187 mg/dl (unknown ) (unknown) (no date) (unknown) (unknown) 19 iu/l (unknown ) (unknown) (no date) (unknown) (unknown) 23.9 (units unknown) (unknown) (unknown) (no date) (unknown) (unknown) 264 mg/dl (unknown ) (unknown) (no date) (unknown) (unknown) 264 mg/dl (unknown ) (unknown) (no date) (unknown) (unknown) 28 mmol/l (unknown ) (unknown) (no date) (unknown) (unknown) 3.8 g/dl (unknown ) (unknown) (no date) (unknown) (unknown) 4.1 g/dl (unknown ) (unknown) (no date) (unknown) (unknown) 4.3 mmol/l (unknown ) (unknown) (no date) (unknown) (unknown) 49 mg/dl (unknown ) (unknown) (no date) (unknown) (unknown) 49 mg/dl (unknown ) (unknown) (no date) (unknown) (unknown) 7.9 g/dl (unknown ) (unknown) (no date) (unknown) (unknown) 8.9 mg/dl (unknown ) (unknown) (no date) (unknown) (unknown) 98 mg/dl (unknown ) (unknown) (no date) (unknown) (unknown) 98 mg/dl (unknown ) Result panel 42 (unknown) (no date) (unknown) (unknown) 1.37 uiu/ml (unknown ) Result panel 43 (unknown) (no date) (unknown) (unknown) > 60 ml/min (unknown ) (unknown) (no date) (unknown) (unknown) > 60 ml/min (unknown ) (unknown) (no date) (unknown) (unknown) 0.3 mg/dl (unknown ) (unknown) (no date) (unknown) (unknown) 0.67 mg/dl (unknown ) (unknown) (no date) (unknown) (unknown) 1.1 (units unknown) (unknown) (unknown) (no date) (unknown) (unknown) 103 mmol/l (unknown ) (unknown) (no date) (unknown) (unknown) 118 u/l (unknown ) (unknown) (no date) (unknown) (unknown) 138 mmol/l (unknown ) (unknown) (no date) (unknown) (unknown) 141 mg/dl (unknown ) (unknown) (no date) (unknown) (unknown) 141 mg/dl (unknown ) (unknown) (no date) (unknown) (unknown) 16 mg/dl (unknown ) (unknown) (no date) (unknown) (unknown) 17 iu/l (unknown ) (unknown) (no date) (unknown) (unknown) 18 ng/ml (unknown ) (unknown) (no date) (unknown) (unknown) 187 mg/dl (unknown ) (unknown) (no date) (unknown) (unknown) 187 mg/dl (unknown ) (unknown) (no date) (unknown) (unknown) 19 iu/l (unknown ) (unknown) (no date) (unknown) (unknown) 23.9 (units unknown) (unknown) (unknown) (no date) (unknown) (unknown) 264 mg/dl (unknown ) (unknown) (no date) (unknown) (unknown) 264 mg/dl (unknown ) (unknown) (no date) (unknown) (unknown) 28 mmol/l (unknown ) (unknown) (no date) (unknown) (unknown) 3.8 g/dl (unknown ) (unknown) (no date) (unknown) (unknown) 4.1 g/dl (unknown ) (unknown) (no date) (unknown) (unknown) 4.3 mmol/l (unknown ) (unknown) (no date) (unknown) (unknown) 49 mg/dl (unknown ) (unknown) (no date) (unknown) (unknown) 49 mg/dl (unknown ) (unknown) (no date) (unknown) (unknown) 7.9 g/dl (unknown ) (unknown) (no date) (unknown) (unknown) 8.9 mg/dl (unknown ) (unknown) (no date) (unknown) (unknown) 98 mg/dl (unknown ) (unknown) (no date) (unknown) (unknown) 98 mg/dl (unknown ) Result panel 44 (unknown) (no date) (unknown) (unknown) (no value) (units unknown) (unknown) (unknown) (no date) (unknown) (unknown) [id number] (units unknown) (unknown) (unknown) (no date) (unknown) (unknown) 08/06/22 (units unknown) (unknown) (unknown) (no date) (unknown) (unknown) AAA (abdominal aortic aneurysm) (-2017) (units unknown) (unknown) (unknown) (no date) (unknown) (unknown) Acne (-1998) (units unknown) (unknown) (unknown) (no date) (unknown) (unknown) Age/Sex: 36 / F Date of Service: (units unknown) (unknown) (unknown) (no date) (unknown) (unknown) Allergies (units unknown) (unknown) (unknown) (no date) (unknown) (unknown) [facility] (units unknown) (unknown) (unknown) (no date) (unknown) (unknown) [place] [id number] (units unknown) (unknown) (unknown) (no date) (unknown) (unknown) Anemia (units unknown) (unknown) (unknown) (no date) (unknown) (unknown) Anesthesia (units unknown) (unknown) (unknown) (no date) (unknown) (unknown) Attending Dr: Kat SHEPPARD (units unknown) (unknown) (unknown) (no date) (unknown) (unknown) Brother Down syndrome (units unknown) (unknown) (unknown) (no date) (unknown) (unknown) Cancer (units unknown) (unknown) (unknown) (no date) (unknown) (unknown) : 5 Acct:[id number] (units unknown) (unknown) (unknown) (no date) (unknown) (unknown) Dept at . (units unknown) (unknown) (unknown) (no date) (unknown) (unknown) Diet and Exercise (u nits unknown) (unknown) (unknown) (no date) (unknown) (unknown) Documented By: Kat Espinoza 08/06/22 1326 (units unknown) (unknown) (unknown) (no date) (unknown) (unknown) Draft (units unknown) (unknown) (unknown) (no date) (unknown) (unknown) Dysphagia (2005) (un its unknown) (unknown) (unknown) (no date) (unknown) (unknown) Elevated liver enzymes (01/2019) (units unknown) (unknown) (unknown) (no date) (unknown) (unknown) Family History (Updated 06/12/22 @ 20:13 by Marissa Stauffer) (units unknown) (unknown) (unknown) (no date) (unknown) (unknown) Family estrangement (units unknown) (unknown) (unknown) (no date) (unknown) (unknown) Family/Other Selective mutism (units unknown) (unknown) (unknown) (no date) (unknown) (unknown) Father d Liver cancer (units unknown) (unknown) (unknown) (no date) (unknown) (unknown) GERD (gastroesophageal reflux disease) (-2005) (units unknown) (unknown) (unknown) (no date) (unknown) (unknown) Gallstones () ( units unknown) (unknown) (unknown) (no date) (unknown) (unknown) Glaucoma (units unknown) (unknown) (unknown) (no date) (unknown) (unknown) Grandfather Cancer (units unknown) (unknown) (unknown) (no date) (unknown) (unknown) Grandfather Unknown whether patient has any health problems (units unknown) (unknown) (unknown) (no date) (unknown) (unknown) Grandmother Anemia ( units unknown) (unknown) (unknown) (no date) (unknown) (unknown) Grandmother Family estrangement (units unknown) (unknown) (unknown) (no date) (unknown) (unknown) Heavy menstrua l period () (units unknown) (unknown) (unknown) (no date) (unknown) (unknown) History of cholecystectomy () (units unknown) (unknown) (unknown) (no date) (unknown) (unknown) Intake Note: (units unknown) (unknown) (unknown) (no date) (unknown) (unknown) Intake perform ed by: Tasneem Bird (units unknown) (unknown) (unknown) (no date) (unknown) (unknown) Intake (units unknown) (unknown) (unknown) (no date) (unknown) (unknown) Intake- Paulette wilde Staff (units unknown) (unknown) (unknown) (no date) (unknown) (unknown) Irregular mens trual cycle () (units unknown) (unknown) (unknown) (no date) (unknown) (unknown) Loc: [facility] (units unknown) (unknown) (unknown) (no date) (unknown) (unknown) Medical Histor y (Updated 06/12/22 @ 20:09 by Marissa Stauffer) (units unknown) (unknown) (unknown) (no date) (unknown) (unknown) Melasma () (uni ts unknown) (unknown) (unknown) (no date) (unknown) (unknown) Migraines (units unknown) (unknown) (unknown) (no date) (unknown) (unknown) Mother Rheumat oid arthritis (units unknown) (unknown) (unknown) (no date) (unknown) (unknown) No Known Drug Allergies Allergy (Verified 06/02/22 08:07) (units unknown) (unknown) (unknown) (no date) (unknown) (unknown) Non-alcoholic fatty liver disease (units unknown) (unknown) (unknown) (no date) (unknown) (unknown) PFSH (units unknown) (unknown) (unknown) (no date) (unknown) (unknown) Painful menstr ual periods (-1998) (units unknown) (unknown) (unknown) (no date) (unknown) (unknown) Patient: Haydee Woodson MR#: [id number] (units unknown) (unknown) (unknown) (no date) (unknown) (unknown) (units unknown) (unknown) (unknown) (no date) (unknown) (unknown) Psoriasis (units unknown) (unknown) (unknown) (no date) (unknown) (unknown) Reason For Visit (un its unknown) (unknown) (unknown) (no date) (unknown) (unknown) Regurgitation of food (units unknown) (unknown) (unknown) (no date) (unknown) (unknown) Safety (units unknown) (unknown) (unknown) (no date) (unknown) (unknown) Signed By: (units unknown) (unknown) (unknown) (no date) (unknown) (unknown) Sister Glaucoma (uni ts unknown) (unknown) (unknown) (no date) (unknown) (unknown) Sister History of cholecystectomy (units unknown) (unknown) (unknown) (no date) (unknown) (unknown) Smoking Status : Never smoker (units unknown) (unknown) (unknown) (no date) (unknown) (unknown) Social History (unit s unknown) (unknown) (unknown) (no date) (unknown) (unknown) Surgical Histo ry (units unknown) (unknown) (unknown) (no date) (unknown) (unknown) This note may have been all or partially generated using voice recognition (units unknown) (unknown) (unknown) (no date) (unknown) (unknown) Threatened (units unknown) (unknown) (unknown) (no date) (unknown) (unknown) Tobacco + Subs tance Use (units unknown) (unknown) (unknown) (no date) (unknown) (unknown) Tobacco Status (unit s unknown) (unknown) (unknown) (no date) (unknown) (unknown) Type(s) of exercise: normal ROM and activity (Busy mom, with young children) (units unknown) (unknown) (unknown) (no date) (unknown) (unknown) Unknown whethe r patient has any health problems (units unknown) (unknown) (unknown) (no date) (unknown) (unknown) Uterine cancer (-2013) (units unknown) (unknown) (unknown) (no date) (unknown) (unknown) Uterine cancer (unit s unknown) (unknown) (unknown) (no date) (unknown) (unknown) Visit Reasons: Possible UTI - unexpected results on home UA (units unknown) (unknown) (unknown) (no date) (unknown) (unknown) Walk In Clinic Visit (units unknown) (unknown) (unknown) (no date) (unknown) (unknown) Petroleum teeth removed () (units unknown) (unknown) (unknown) (no date) (unknown) (unknown) alcohol intake : never (units unknown) (unknown) (unknown) (no date) (unknown) (unknown) caffeine: Yes (1 decaf daily.) (units unknown) (unknown) (unknown) (no date) (unknown) (unknown) caregiver/supp ort person: No (units unknown) (unknown) (unknown) (no date) (unknown) (unknown) current occupational exposures/hazards: No (units unknown) (unknown) (unknown) (no date) (unknown) (unknown) daily servings fruits/ve-4 (units unknown) (unknown) (unknown) (no date) (unknown) (unknown) do you feel sa fe at home: Yes (units unknown) (unknown) (unknown) (no date) (unknown) (unknown) during the pas t year weight has: remained stable (units unknown) (unknown) (unknown) (no date) (unknown) (unknown) education leve l: high school (units unknown) (unknown) (unknown) (no date) (unknown) (unknown) jj/jainism : Anabaptism (units unknown) (unknown) (unknown) (no date) (unknown) (unknown) frequency: ro s not exercise (units unknown) (unknown) (unknown) (no date) (unknown) (unknown) have occurred. If there are any questions, please contact the Medical Records (units unknown) (unknown) (unknown) (no date) (unknown) (unknown) household memb ers: spouse and children (units unknown) (unknown) (unknown) (no date) (unknown) (unknown) housing: house (unit s unknown) (unknown) (unknown) (no date) (unknown) (unknown) lives independently: Yes (units unknown) (unknown) (unknown) (no date) (unknown) (unknown) marital status : (units unknown) (unknown) (unknown) (no date) (unknown) (unknown) may occur. 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 Please (units unknown) (unknown) (unknown) (no date) (unknown) (unknown) pets and anima ls: Yes (Dogs + cats: safe/ aware.) (units unknown) (unknown) (unknown) (no date) (unknown) (unknown) pt arrives to [facility] with daughter c/o dysuria x3 weeks (units unknown) (unknown) (unknown) (no date) (unknown) (unknown) read the note carefully and recognize, using context, where these substitutions (units unknown) (unknown) (unknown) (no date) (unknown) (unknown) seatbelt use: always (units unknown) (unknown) (unknown) (no date) (unknown) (unknown) second hand exposure: No (units unknown) (unknown) (unknown) (no date) (unknown) (unknown) software. Alth ough every effort is made to edit content, advanced seal delivery system errors (units unknown) (unknown) (unknown) (no date) (unknown) (unknown) special jj needs: No (units unknown) (unknown) (unknown) (no date) (unknown) (unknown) substance use type: does not use (units unknown) (unknown) (unknown) (no date) (unknown) (unknown) well-balanced diet: about half the time ('Hard to eat protein lately.' ) (units unknown) (unknown) Result panel 45 (unknown) (no date) (unknown) (unknown) (no value) (units unknown) (unknown) (unknown) (no date) (unknown) (unknown) / (units unknown) (unknown) (unknown) (no date) (unknown) (unknown) [id number] (units unknown) (unknown) (unknown) (no date) (unknown) (unknown) 08/06/22 (units unknown) (unknown) (unknown) (no date) (unknown) (unknown) 13:38 (units unknown) (unknown) (unknown) (no date) (unknown) (unknown) 23 (units unknown) (unknown) (unknown) (no date) (unknown) (unknown) 38 (units unknown) (unknown) (unknown) (no date) (unknown) (unknown) 8 (units unknown) (unknown) (unknown) (no date) (unknown) (unknown) :38 (units unknown) (unknown) (unknown) (no date) (unknown) (unknown) AAA (abdominal aortic aneurysm) (-2017) (units unknown) (unknown) (unknown) (no date) (unknown) (unknown) Acne (-1998) (units unknown) (unknown) (unknown) (no date) (unknown) (unknown) Age/Sex: 36 / F Date of Service: (units unknown) (unknown) (unknown) (no date) (unknown) (unknown) Allergies (units unknown) (unknown) (unknown) (no date) (unknown) (unknown) [facility] (units unknown) (unknown) (unknown) (no date) (unknown) (unknown) [place] [id number] (units unknown) (unknown) (unknown) (no date) (unknown) (unknown) Anemia (units unknown) (unknown) (unknown) (no date) (unknown) (unknown) Anesthesia (units unknown) (unknown) (unknown) (no date) (unknown) (unknown) Assessment + Plan (u nits unknown) (unknown) (unknown) (no date) (unknown) (unknown) Attending Dr: Kat SHEPPARD (units unknown) (unknown) (unknown) (no date) (unknown) (unknown) Brother Down syndrome (units unknown) (unknown) (unknown) (no date) (unknown) (unknown) Cancer (units unknown) (unknown) (unknown) (no date) (unknown) (unknown) : 5 Acct:[id number] (units unknown) (unknown) (unknown) (no date) (unknown) (unknown) Dept at . (units unknown) (unknown) (unknown) (no date) (unknown) (unknown) Diet and Exercise (u nits unknown) (unknown) (unknown) (no date) (unknown) (unknown) Documented By: Kat Espinoza 08/06/22 1326 (units unknown) (unknown) (unknown) (no date) (unknown) (unknown) Draft (units unknown) (unknown) (unknown) (no date) (unknown) (unknown) Dysphagia (2005) (un its unknown) (unknown) (unknown) (no date) (unknown) (unknown) Elevated liver enzymes (01/2019) (units unknown) (unknown) (unknown) (no date) (unknown) (unknown) Family History (Updated 06/12/22 @ 20:13 by Marissa Stauffer) (units unknown) (unknown) (unknown) (no date) (unknown) (unknown) Family estrangement (units unknown) (unknown) (unknown) (no date) (unknown) (unknown) Family/Other Selective mutism (units unknown) (unknown) (unknown) (no date) (unknown) (unknown) Father d Liver cancer (units unknown) (unknown) (unknown) (no date) (unknown) (unknown) GERD (gastroesophageal reflux disease) (-2005) (units unknown) (unknown) (unknown) (no date) (unknown) (unknown) Gallstones (-2017) ( units unknown) (unknown) (unknown) (no date) (unknown) (unknown) Glaucoma (units unknown) (unknown) (unknown) (no date) (unknown) (unknown) Grandfather Cancer (units unknown) (unknown) (unknown) (no date) (unknown) (unknown) Grandfather Unknown whether patient has any health problems (units unknown) (unknown) (unknown) (no date) (unknown) (unknown) Grandmother Anemia ( units unknown) (unknown) (unknown) (no date) (unknown) (unknown) Grandmother Family estrangement (units unknown) (unknown) (unknown) (no date) (unknown) (unknown) Heavy menstrua l period (-1998) (units unknown) (unknown) (unknown) (no date) (unknown) (unknown) History of cholecystectomy (-2017) (units unknown) (unknown) (unknown) (no date) (unknown) (unknown) Intake Note: (units unknown) (unknown) (unknown) (no date) (unknown) (unknown) Intake perform ed by: Tasneem Bird (units unknown) (unknown) (unknown) (no date) (unknown) (unknown) Intake (units unknown) (unknown) (unknown) (no date) (unknown) (unknown) Intake- [facility] (units unknown) (unknown) (unknown) (no date) (unknown) (unknown) Irregular mens trual cycle () (units unknown) (unknown) (unknown) (no date) (unknown) (unknown) Loc: [facility] (units unknown) (unknown) (unknown) (no date) (unknown) (unknown) Medical Histor y (Updated 06/12/22 @ 20:09 by Marissa Stauffer) (units unknown) (unknown) (unknown) (no date) (unknown) (unknown) Melasma (-2020) (uni ts unknown) (unknown) (unknown) (no date) (unknown) (unknown) Migraines (units unknown) (unknown) (unknown) (no date) (unknown) (unknown) Mother Rheumat oid arthritis (units unknown) (unknown) (unknown) (no date) (unknown) (unknown) No Known Drug Allergies Allergy (Verified 06/02/22 08:07) (units unknown) (unknown) (unknown) (no date) (unknown) (unknown) Non-alcoholic fatty liver disease (units unknown) (unknown) (unknown) (no date) (unknown) (unknown) Orders (units unknown) (unknown) (unknown) (no date) (unknown) (unknown) Orders: (units unknown) (unknown) (unknown) (no date) (unknown) (unknown) PFSH (units unknown) (unknown) (unknown) (no date) (unknown) (unknown) POC Urine Dip Today R30.0 - Dysuria (units unknown) (unknown) (unknown) (no date) (unknown) (unknown) POC Urine Preg elda Test Today R30.0 - Dysuria (units unknown) (unknown) (unknown) (no date) (unknown) (unknown) Painful menstr ual periods (-1998) (units unknown) (unknown) (unknown) (no date) (unknown) (unknown) Patient: Haydee Woodson MR#: [id number] (units unknown) (unknown) (unknown) (no date) (unknown) (unknown) (units unknown) (unknown) (unknown) (no date) (unknown) (unknown) Psoriasis (units unknown) (unknown) (unknown) (no date) (unknown) (unknown) Reason For Visit (un its unknown) (unknown) (unknown) (no date) (unknown) (unknown) Regurgitation of food (units unknown) (unknown) (unknown) (no date) (unknown) (unknown) Results (units unknown) (unknown) (unknown) (no date) (unknown) (unknown) Safety (units unknown) (unknown) (unknown) (no date) (unknown) (unknown) Signed By: (units unknown) (unknown) (unknown) (no date) (unknown) (unknown) Sister Glaucoma (uni ts unknown) (unknown) (unknown) (no date) (unknown) (unknown) Sister History of cholecystectomy (units unknown) (unknown) (unknown) (no date) (unknown) (unknown) Smoking Status : Never smoker (units unknown) (unknown) (unknown) (no date) (unknown) (unknown) Social History (unit s unknown) (unknown) (unknown) (no date) (unknown) (unknown) Surgical Histo ry (units unknown) (unknown) (unknown) (no date) (unknown) (unknown) This note may have been all or partially generated using voice recognition (units unknown) (unknown) (unknown) (no date) (unknown) (unknown) Threatened (units unknown) (unknown) (unknown) (no date) (unknown) (unknown) Tobacco + Subs tance Use (units unknown) (unknown) (unknown) (no date) (unknown) (unknown) Tobacco Status (unit s unknown) (unknown) (unknown) (no date) (unknown) (unknown) Type(s) of exercise: normal ROM and activity (Busy mom, with young children) (units unknown) (unknown) (unknown) (no date) (unknown) (unknown) Unknown whethe r patient has any health problems (units unknown) (unknown) (unknown) (no date) (unknown) (unknown) Urine Appearan ce Clear Last Edit by Tasneem Bird LPN on 08/06/22 13:38 (units unknown) (unknown) (unknown) (no date) (unknown) (unknown) Urine Bilirubi n 1+ 1 mg/dL Last Edit by Tasneem Bird LPN on 08/06/22 13: (units unknown) (unknown) (unknown) (no date) (unknown) (unknown) Urine Blood 1+ 25 Parvez/uL Last Edit by Tasneem Bird LPN on 08/06/22 13:38 (units unknown) (unknown) (unknown) (no date) (unknown) (unknown) Urine Color Ye llow Last Edit by Tasneem Bird LPN on 08/06/22 13:38 (units unknown) (unknown) (unknown) (no date) (unknown) (unknown) Urine Culture Today R10.9 - Unspecified abdominal pain (units unknown) (unknown) (unknown) (no date) (unknown) (unknown) Urine Dipstick (unit s unknown) (unknown) (unknown) (no date) (unknown) (unknown) Urine Glucose Negative mg/dL Last Edit by Tasneem Bird LPN on 08/06/22 13 (units unknown) (unknown) (unknown) (no date) (unknown) (unknown) Urine Ketones Negative Last Edit by Tasneem Bird LPN on 08/06/22 13:38 (units unknown) (unknown) (unknown) (no date) (unknown) (unknown) Urine Leukocyt e Esterase Negative Last Edit by Tasneem Bird LPN on 08/06 (units unknown) (unknown) (unknown) (no date) (unknown) (unknown) Urine Nitrate Negative Last Edit by Tasneem Bird LPN on 08/06/22 13:38 (units unknown) (unknown) (unknown) (no date) (unknown) (unknown) Urine Protein +- 15 mg/dL Last Edit by Tasneem Bird LPN on 08/06/22 13:3 (units unknown) (unknown) (unknown) (no date) (unknown) (unknown) Urine Specific [place] 1.025 Last Edit by Tasneem Bird LPN on 08/06/22 (units unknown) (unknown) (unknown) (no date) (unknown) (unknown) Urine Urobilin ogen - 0.2 mg/dL Last Edit by Tasneem Bird LPN on (units unknown) (unknown) (unknown) (no date) (unknown) (unknown) Urine pH 5.5 L ast Edit by Tasneem Bird LPN on 08/06/22 13:38 (units unknown) (unknown) (unknown) (no date) (unknown) (unknown) Uterine cancer (-2013) (units unknown) (unknown) (unknown) (no date) (unknown) (unknown) Uterine cancer (unit s unknown) (unknown) (unknown) (no date) (unknown) (unknown) Visit Reasons: Possible UTI - unexpected results on home UA (units unknown) (unknown) (unknown) (no date) (unknown) (unknown) [facility] Visit (units unknown) (unknown) (unknown) (no date) (unknown) (unknown) Petroleum teeth removed () (units unknown) (unknown) (unknown) (no date) (unknown) (unknown) alcohol intake : never (units unknown) (unknown) (unknown) (no date) (unknown) (unknown) caffeine: Yes (1 decaf daily.) (units unknown) (unknown) (unknown) (no date) (unknown) (unknown) caregiver/supp ort person: No (units unknown) (unknown) (unknown) (no date) (unknown) (unknown) current occupational exposures/hazards: No (units unknown) (unknown) (unknown) (no date) (unknown) (unknown) daily servings fruits/ve-4 (units unknown) (unknown) (unknown) (no date) (unknown) (unknown) do you feel sa fe at home: Yes (units unknown) (unknown) (unknown) (no date) (unknown) (unknown) during the pas t year weight has: remained stable (units unknown) (unknown) (unknown) (no date) (unknown) (unknown) education leve l: high school (units unknown) (unknown) (unknown) (no date) (unknown) (unknown) jj/jainism : Anabaptism (units unknown) (unknown) (unknown) (no date) (unknown) (unknown) frequency: or s not exercise (units unknown) (unknown) (unknown) (no date) (unknown) (unknown) have occurred. If there are any questions, please contact the Medical Records (units unknown) (unknown) (unknown) (no date) (unknown) (unknown) household memb ers: spouse and children (units unknown) (unknown) (unknown) (no date) (unknown) (unknown) housing: house (unit s unknown) (unknown) (unknown) (no date) (unknown) (unknown) lives independently: Yes (units unknown) (unknown) (unknown) (no date) (unknown) (unknown) marital status : (units unknown) (unknown) (unknown) (no date) (unknown) (unknown) may occur. 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 Please (units unknown) (unknown) (unknown) (no date) (unknown) (unknown) pets and anima ls: Yes (Dogs + cats: safe/ aware.) (units unknown) (unknown) (unknown) (no date) (unknown) (unknown) pt arrives to [facility] with daughter c/o dysuria x3 weeks (units unknown) (unknown) (unknown) (no date) (unknown) (unknown) read the note carefully and recognize, using context, where these substitutions (units unknown) (unknown) (unknown) (no date) (unknown) (unknown) seatbelt use: always (units unknown) (unknown) (unknown) (no date) (unknown) (unknown) second hand exposure: No (units unknown) (unknown) (unknown) (no date) (unknown) (unknown) software. Alth ough every effort is made to edit content, advanced seal delivery system errors (units unknown) (unknown) (unknown) (no date) (unknown) (unknown) special jj needs: No (units unknown) (unknown) (unknown) (no date) (unknown) (unknown) substance use type: does not use (units unknown) (unknown) (unknown) (no date) (unknown) (unknown) well-balanced diet: about half the time ('Hard to eat protein lately.' ) (units unknown) (unknown) Result panel 46 (unknown) (no date) (unknown) (unknown) (no value) (units unknown) (unknown) (unknown) (no date) (unknown) (unknown) / (units unknown) (unknown) (unknown) (no date) (unknown) (unknown) [id number] (units unknown) (unknown) (unknown) (no date) (unknown) (unknown) 08/06/22 (units unknown) (unknown) (unknown) (no date) (unknown) (unknown) 13:38 (units unknown) (unknown) (unknown) (no date) (unknown) (unknown) 13:45 (units unknown) (unknown) (unknown) (no date) (unknown) (unknown) 23 (units unknown) (unknown) (unknown) (no date) (unknown) (unknown) 38 (units unknown) (unknown) (unknown) (no date) (unknown) (unknown) 8 (units unknown) (unknown) (unknown) (no date) (unknown) (unknown) :38 (units unknown) (unknown) (unknown) (no date) (unknown) (unknown) AAA (abdominal aortic aneurysm) (-2018) (units unknown) (unknown) (unknown) (no date) (unknown) (unknown) Acne (-1998) (units unknown) (unknown) (unknown) (no date) (unknown) (unknown) Age/Sex: 36 / F Date of Service: (units unknown) (unknown) (unknown) (no date) (unknown) (unknown) Allergies (units unknown) (unknown) (unknown) (no date) (unknown) (unknown) [facility] (units unknown) (unknown) (unknown) (no date) (unknown) (unknown) [place] [id number] (units unknown) (unknown) (unknown) (no date) (unknown) (unknown) Anemia (units unknown) (unknown) (unknown) (no date) (unknown) (unknown) Anesthesia (units unknown) (unknown) (unknown) (no date) (unknown) (unknown) Assessment + Plan (u nits unknown) (unknown) (unknown) (no date) (unknown) (unknown) Attending Dr: Kat SHEPPARD (units unknown) (unknown) (unknown) (no date) (unknown) (unknown) BP 122/78 (units unknown) (unknown) (unknown) (no date) (unknown) (unknown) Blood Pressure Location Rt brachial (units unknown) (unknown) (unknown) (no date) (unknown) (unknown) Brother Down syndrome (units unknown) (unknown) (unknown) (no date) (unknown) (unknown) Cancer (units unknown) (unknown) (unknown) (no date) (unknown) (unknown) : 5 Acct:[id number] (units unknown) (unknown) (unknown) (no date) (unknown) (unknown) Dept at . (units unknown) (unknown) (unknown) (no date) (unknown) (unknown) Diet and Exercise (u nits unknown) (unknown) (unknown) (no date) (unknown) (unknown) Documented By: Kat Espinoza 08/06/22 1326 (units unknown) (unknown) (unknown) (no date) (unknown) (unknown) Draft (units unknown) (unknown) (unknown) (no date) (unknown) (unknown) Dysphagia (2005) (un its unknown) (unknown) (unknown) (no date) (unknown) (unknown) Elevated liver enzymes (01/2019) (units unknown) (unknown) (unknown) (no date) (unknown) (unknown) Family History (Updated 06/12/22 @ 20:13 by Marissa Stauffer) (units unknown) (unknown) (unknown) (no date) (unknown) (unknown) Family estrangement (units unknown) (unknown) (unknown) (no date) (unknown) (unknown) Family/Other Selective mutism (units unknown) (unknown) (unknown) (no date) (unknown) (unknown) Father d Liver cancer (units unknown) (unknown) (unknown) (no date) (unknown) (unknown) GERD (gastroesophageal reflux disease) (-2005) (units unknown) (unknown) (unknown) (no date) (unknown) (unknown) Gallstones () ( units unknown) (unknown) (unknown) (no date) (unknown) (unknown) Glaucoma (units unknown) (unknown) (unknown) (no date) (unknown) (unknown) Grandfather Cancer (units unknown) (unknown) (unknown) (no date) (unknown) (unknown) Grandfather Unknown whether patient has any health problems (units unknown) (unknown) (unknown) (no date) (unknown) (unknown) Grandmother Anemia ( units unknown) (unknown) (unknown) (no date) (unknown) (unknown) Grandmother Family estrangement (units unknown) (unknown) (unknown) (no date) (unknown) (unknown) Heavy menstrua l period () (units unknown) (unknown) (unknown) (no date) (unknown) (unknown) History of cholecystectomy () (units unknown) (unknown) (unknown) (no date) (unknown) (unknown) Intake Note: (units unknown) (unknown) (unknown) (no date) (unknown) (unknown) Intake perform ed by: Tasneem Bird (units unknown) (unknown) (unknown) (no date) (unknown) (unknown) Intake (units unknown) (unknown) (unknown) (no date) (unknown) (unknown) Intake- [facility] (units unknown) (unknown) (unknown) (no date) (unknown) (unknown) Irregular mens trual cycle () (units unknown) (unknown) (unknown) (no date) (unknown) (unknown) Loc: [facility] (units unknown) (unknown) (unknown) (no date) (unknown) (unknown) Medical Histor y (Updated 06/12/22 @ 20:09 by Marissa Stauffer) (units unknown) (unknown) (unknown) (no date) (unknown) (unknown) Melasma () (uni ts unknown) (unknown) (unknown) (no date) (unknown) (unknown) Migraines (units unknown) (unknown) (unknown) (no date) (unknown) (unknown) Mother Rheumat oid arthritis (units unknown) (unknown) (unknown) (no date) (unknown) (unknown) No Known Drug Allergies Allergy (Verified 08/06/22 13:40) (units unknown) (unknown) (unknown) (no date) (unknown) (unknown) Non-alcoholic fatty liver disease (units unknown) (unknown) (unknown) (no date) (unknown) (unknown) Orders (units unknown) (unknown) (unknown) (no date) (unknown) (unknown) Orders: (units unknown) (unknown) (unknown) (no date) (unknown) (unknown) Oxygen Deliver y Method room air (units unknown) (unknown) (unknown) (no date) (unknown) (unknown) PFSH (units unknown) (unknown) (unknown) (no date) (unknown) (unknown) POC PREG (units unknown) (unknown) (unknown) (no date) (unknown) (unknown) POC Preg Test Negative Last Edit by Tasneem Bird LPN on 08/06/22 13:40 (units unknown) (unknown) (unknown) (no date) (unknown) (unknown) POC Urine Dip Today R30.0 - Dysuria (units unknown) (unknown) (unknown) (no date) (unknown) (unknown) POC Urine Preg elda Test Today R30.0 - Dysuria (units unknown) (unknown) (unknown) (no date) (unknown) (unknown) Painful menstr ual periods (-1998) (units unknown) (unknown) (unknown) (no date) (unknown) (unknown) Patient: Haydee Woodson MR#: [id number] (units unknown) (unknown) (unknown) (no date) (unknown) (unknown) Position Sitting (un its unknown) (unknown) (unknown) (no date) (unknown) (unknown) Preg Expiratio n 07/01/23 Last Edit by Tasneem Bird LPN on 08/06/22 13:40 (units unknown) (unknown) (unknown) (no date) (unknown) (unknown) Preg Lot # [id number] Last Edit by Tasneem Bird LPN on 08/06/22 13:40 (units unknown) (unknown) (unknown) (no date) (unknown) (unknown) Preg QC Accept able? Last Edit by Tasneem Bird LPN on 08/06/22 13:40 (units unknown) (unknown) (unknown) (no date) (unknown) (unknown) (units unknown) (unknown) (unknown) (no date) (unknown) (unknown) Psoriasis (units unknown) (unknown) (unknown) (no date) (unknown) (unknown) Pulse 84 (units unknown) (unknown) (unknown) (no date) (unknown) (unknown) Pulse Oximetry (%) 96 (units unknown) (unknown) (unknown) (no date) (unknown) (unknown) Pulse Source Monitor (units unknown) (unknown) (unknown) (no date) (unknown) (unknown) Reason For Visit (un its unknown) (unknown) (unknown) (no date) (unknown) (unknown) Regurgitation of food (units unknown) (unknown) (unknown) (no date) (unknown) (unknown) Respiration 16 (unit s unknown) (unknown) (unknown) (no date) (unknown) (unknown) Results (units unknown) (unknown) (unknown) (no date) (unknown) (unknown) Safety (units unknown) (unknown) (unknown) (no date) (unknown) (unknown) Signed By: (units unknown) (unknown) (unknown) (no date) (unknown) (unknown) Sister Glaucoma (uni ts unknown) (unknown) (unknown) (no date) (unknown) (unknown) Sister History of cholecystectomy (units unknown) (unknown) (unknown) (no date) (unknown) (unknown) Smoking Status : Never smoker (units unknown) (unknown) (unknown) (no date) (unknown) (unknown) Social History (unit s unknown) (unknown) (unknown) (no date) (unknown) (unknown) Surgical Histo ry (units unknown) (unknown) (unknown) (no date) (unknown) (unknown) Temp 98.3 F (units unknown) (unknown) (unknown) (no date) (unknown) (unknown) Temp Source Temporal Artery Scan (units unknown) (unknown) (unknown) (no date) (unknown) (unknown) This note may have been all or partially generated using voice recognition (units unknown) (unknown) (unknown) (no date) (unknown) (unknown) Threatened (units unknown) (unknown) (unknown) (no date) (unknown) (unknown) Tobacco + Subs tance Use (units unknown) (unknown) (unknown) (no date) (unknown) (unknown) Tobacco Status (unit s unknown) (unknown) (unknown) (no date) (unknown) (unknown) Type(s) of exercise: normal ROM and activity (Busy mom, with young children) (units unknown) (unknown) (unknown) (no date) (unknown) (unknown) Unknown whethe r patient has any health problems (units unknown) (unknown) (unknown) (no date) (unknown) (unknown) Urine Appearan ce Clear Last Edit by Tasneem Bird LPN on 08/06/22 13:38 (units unknown) (unknown) (unknown) (no date) (unknown) (unknown) Urine Bilirubi n 1+ 1 mg/dL Last Edit by Tasneem Bird LPN on 08/06/22 13: (units unknown) (unknown) (unknown) (no date) (unknown) (unknown) Urine Blood 1+ 25 Parvez/uL Last Edit by Tasneem Bird LPN on 08/06/22 13:38 (units unknown) (unknown) (unknown) (no date) (unknown) (unknown) Urine Color Ye llow Last Edit by Tasneem Bird LPN on 08/06/22 13:38 (units unknown) (unknown) (unknown) (no date) (unknown) (unknown) Urine Culture Today R10.9 - Unspecified abdominal pain (units unknown) (unknown) (unknown) (no date) (unknown) (unknown) Urine Dipstick (unit s unknown) (unknown) (unknown) (no date) (unknown) (unknown) Urine Glucose Negative mg/dL Last Edit by Tasneem Bird LPN on 08/06/22 13 (units unknown) (unknown) (unknown) (no date) (unknown) (unknown) Urine Ketones Negative Last Edit by Tasneem Bird LPN on 08/06/22 13:38 (units unknown) (unknown) (unknown) (no date) (unknown) (unknown) Urine Leukocyt e Esterase Negative Last Edit by Tasneem Bird LPN on 08/06 (units unknown) (unknown) (unknown) (no date) (unknown) (unknown) Urine Nitrate Negative Last Edit by Tasneem Bird LPN on 08/06/22 13:38 (units unknown) (unknown) (unknown) (no date) (unknown) (unknown) Urine Protein +- 15 mg/dL Last Edit by Tasneem Bird LPN on 08/06/22 13:3 (units unknown) (unknown) (unknown) (no date) (unknown) (unknown) Urine Specific [place] 1.025 Last Edit by Tasneem Bird LPN on 08/06/22 (units unknown) (unknown) (unknown) (no date) (unknown) (unknown) Urine Urobilin ogen - 0.2 mg/dL Last Edit by Tasneem Bird LPN on (units unknown) (unknown) (unknown) (no date) (unknown) (unknown) Urine pH 5.5 L ast Edit by Tasneem Bird LPN on 08/06/22 13:38 (units unknown) (unknown) (unknown) (no date) (unknown) (unknown) Uterine cancer (-2013) (units unknown) (unknown) (unknown) (no date) (unknown) (unknown) Uterine cancer (unit s unknown) (unknown) (unknown) (no date) (unknown) (unknown) Visit Reasons: Possible UTI - unexpected results on home UA (units unknown) (unknown) (unknown) (no date) (unknown) (unknown) Vitals (units unknown) (unknown) (unknown) (no date) (unknown) (unknown) Walk In Clinic Visit (units unknown) (unknown) (unknown) (no date) (unknown) (unknown) Petroleum teeth removed (-2006) (units unknown) (unknown) (unknown) (no date) (unknown) (unknown) alcohol intake : never (units unknown) (unknown) (unknown) (no date) (unknown) (unknown) caffeine: Yes (1 decaf daily.) (units unknown) (unknown) (unknown) (no date) (unknown) (unknown) caregiver/supp ort person: No (units unknown) (unknown) (unknown) (no date) (unknown) (unknown) current occupational exposures/hazards: No (units unknown) (unknown) (unknown) (no date) (unknown) (unknown) daily servings fruits/ve-4 (units unknown) (unknown) (unknown) (no date) (unknown) (unknown) do you feel sa fe at home: Yes (units unknown) (unknown) (unknown) (no date) (unknown) (unknown) during the pas t year weight has: remained stable (units unknown) (unknown) (unknown) (no date) (unknown) (unknown) education leve l: high school (units unknown) (unknown) (unknown) (no date) (unknown) (unknown) jj/jainism : Anabaptism (units unknown) (unknown) (unknown) (no date) (unknown) (unknown) for approx 3 weeks ( units unknown) (unknown) (unknown) (no date) (unknown) (unknown) frequency: ro s not exercise (units unknown) (unknown) (unknown) (no date) (unknown) (unknown) have occurred. If there are any questions, please contact the Medical Records (units unknown) (unknown) (unknown) (no date) (unknown) (unknown) household memb ers: spouse and children (units unknown) (unknown) (unknown) (no date) (unknown) (unknown) housing: house (unit s unknown) (unknown) (unknown) (no date) (unknown) (unknown) lives independently: Yes (units unknown) (unknown) (unknown) (no date) (unknown) (unknown) marital status : (units unknown) (unknown) (unknown) (no date) (unknown) (unknown) may occur. 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 Please (units unknown) (unknown) (unknown) (no date) (unknown) (unknown) pets and anima ls: Yes (Dogs + cats: safe/ aware.) (units unknown) (unknown) (unknown) (no date) (unknown) (unknown) pt arrives to [facility] with daughter c/o urine having 'funny smell' and feeling tired (units unknown) (unknown) (unknown) (no date) (unknown) (unknown) read the note carefully and recognize, using context, where these substitutions (units unknown) (unknown) (unknown) (no date) (unknown) (unknown) seatbelt use: always (units unknown) (unknown) (unknown) (no date) (unknown) (unknown) second hand exposure: No (units unknown) (unknown) (unknown) (no date) (unknown) (unknown) software. Alth ough every effort is made to edit content, advanced seal delivery system errors (units unknown) (unknown) (unknown) (no date) (unknown) (unknown) special jj needs: No (units unknown) (unknown) (unknown) (no date) (unknown) (unknown) substance use type: does not use (units unknown) (unknown) (unknown) (no date) (unknown) (unknown) well-balanced diet: about half the time ('Hard to eat protein lately.' ) (units unknown) (unknown) Result panel 47 (unknown) (no date) (unknown) (unknown) (no value) (units unknown) (unknown) (unknown) (no date) (unknown) (unknown) (1) Abnormal u rine odor: (units unknown) (unknown) (unknown) (no date) (unknown) (unknown) / (units unknown) (unknown) (unknown) (no date) (unknown) (unknown) [id number] (units unknown) (unknown) (unknown) (no date) (unknown) (unknown) 08/06/22 1349 (units unknown) (unknown) (unknown) (no date) (unknown) (unknown) 08/06/22 (units unknown) (unknown) (unknown) (no date) (unknown) (unknown) 13:38 (units unknown) (unknown) (unknown) (no date) (unknown) (unknown) 13:45 (units unknown) (unknown) (unknown) (no date) (unknown) (unknown) 23 (units unknown) (unknown) (unknown) (no date) (unknown) (unknown) 38 (units unknown) (unknown) (unknown) (no date) (unknown) (unknown) 8 (units unknown) (unknown) (unknown) (no date) (unknown) (unknown) :38 (units unknown) (unknown) (unknown) (no date) (unknown) (unknown) AAA (abdominal aortic aneurysm) (-2017) (units unknown) (unknown) (unknown) (no date) (unknown) (unknown) Acne (-1998) (units unknown) (unknown) (unknown) (no date) (unknown) (unknown) Age/Sex: 36 / F Date of Service: (units unknown) (unknown) (unknown) (no date) (unknown) (unknown) Alignment and Position: alignment normal (units unknown) (unknown) (unknown) (no date) (unknown) (unknown) Allergies (units unknown) (unknown) (unknown) (no date) (unknown) (unknown) [facility] (units unknown) (unknown) (unknown) (no date) (unknown) (unknown) [place] [address] (units unknown) (unknown) (unknown) (no date) (unknown) (unknown) Anemia (units unknown) (unknown) (unknown) (no date) (unknown) (unknown) Anesthesia (units unknown) (unknown) (unknown) (no date) (unknown) (unknown) Assessment + Plan (u nits unknown) (unknown) (unknown) (no date) (unknown) (unknown) Attending Dr: Kat SHEPPARD (units unknown) (unknown) (unknown) (no date) (unknown) (unknown) BP 122/78 (units unknown) (unknown) (unknown) (no date) (unknown) (unknown) Blood Pressure Location Rt brachial (units unknown) (unknown) (unknown) (no date) (unknown) (unknown) Brother Down syndrome (units unknown) (unknown) (unknown) (no date) (unknown) (unknown) Cancer (units unknown) (unknown) (unknown) (no date) (unknown) (unknown) Chief Complaint (uni ts unknown) (unknown) (unknown) (no date) (unknown) (unknown) Chief Complain t: Odorous urine (units unknown) (unknown) (unknown) (no date) (unknown) (unknown) Const (units unknown) (unknown) (unknown) (no date) (unknown) (unknown) : 5 Acct:[id number] (units unknown) (unknown) (unknown) (no date) (unknown) (unknown) Dept at . (units unknown) (unknown) (unknown) (no date) (unknown) (unknown) Details: (units unknown) (unknown) (unknown) (no date) (unknown) (unknown) Diet and Exercise (u nits unknown) (unknown) (unknown) (no date) (unknown) (unknown) Documented By: Kat Espinoza 08/06/22 1326 (units unknown) (unknown) (unknown) (no date) (unknown) (unknown) Dysphagia (2005) (un its unknown) (unknown) (unknown) (no date) (unknown) (unknown) Effort + Inspection: normal respiratory effort (units unknown) (unknown) (unknown) (no date) (unknown) (unknown) Elevated liver enzymes (01/2019) (units unknown) (unknown) (unknown) (no date) (unknown) (unknown) Exam (units unknown) (unknown) (unknown) (no date) (unknown) (unknown) Eyes (units unknown) (unknown) (unknown) (no date) (unknown) (unknown) Face and sinus : normal facial exam (units unknown) (unknown) (unknown) (no date) (unknown) (unknown) Family History (Updated 06/12/22 @ 20:13 by Marissa Stauffer) (units unknown) (unknown) (unknown) (no date) (unknown) (unknown) Family estrangement (units unknown) (unknown) (unknown) (no date) (unknown) (unknown) Family/Other Selective mutism (units unknown) (unknown) (unknown) (no date) (unknown) (unknown) Father d Liver cancer (units unknown) (unknown) (unknown) (no date) (unknown) (unknown) GERD (gastroesophageal reflux disease) (-2005) (units unknown) (unknown) (unknown) (no date) (unknown) (unknown) GI (units unknown) (unknown) (unknown) (no date) (unknown) (unknown) (units unknown) (unknown) (unknown) (no date) (unknown) (unknown) Gallstones () ( units unknown) (unknown) (unknown) (no date) (unknown) (unknown) General: appea cade normal, both eyes and all related structures (units unknown) (unknown) (unknown) (no date) (unknown) (unknown) General: cooperative, healthy appearing, comfortable and no acute distress (units unknown) (unknown) (unknown) (no date) (unknown) (unknown) General: no ra shes or lesions noted (units unknown) (unknown) (unknown) (no date) (unknown) (unknown) Glaucoma (units unknown) (unknown) (unknown) (no date) (unknown) (unknown) Grandfather Cancer (units unknown) (unknown) (unknown) (no date) (unknown) (unknown) Grandfather Unknown whether patient has any health problems (units unknown) (unknown) (unknown) (no date) (unknown) (unknown) Grandmother Anemia ( units unknown) (unknown) (unknown) (no date) (unknown) (unknown) Grandmother Family estrangement (units unknown) (unknown) (unknown) (no date) (unknown) (unknown) HENMT (units unknown) (unknown) (unknown) (no date) (unknown) (unknown) HPI and exam indicate need for point of care urine testing which does not (units unknown) (unknown) (unknown) (no date) (unknown) (unknown) HPI (units unknown) (unknown) (unknown) (no date) (unknown) (unknown) Head: normal t o inspection (units unknown) (unknown) (unknown) (no date) (unknown) (unknown) Heavy menstrua l period (-1998) (units unknown) (unknown) (unknown) (no date) (unknown) (unknown) History of cholecystectomy () (units unknown) (unknown) (unknown) (no date) (unknown) (unknown) Inspection: no rmal to inspection (units unknown) (unknown) (unknown) (no date) (unknown) (unknown) Intake Note: (units unknown) (unknown) (unknown) (no date) (unknown) (unknown) Intake perform ed by: Tasneem Bird (units unknown) (unknown) (unknown) (no date) (unknown) (unknown) Intake (units unknown) (unknown) (unknown) (no date) (unknown) (unknown) Intake- Clinci al Staff (units unknown) (unknown) (unknown) (no date) (unknown) (unknown) Irregular mens trual cycle (-1998) (units unknown) (unknown) (unknown) (no date) (unknown) (unknown) Loc: [facility] (units unknown) (unknown) (unknown) (no date) (unknown) (unknown) Medical Histor y (Updated 06/12/22 @ 20:09 by Marissa Stauffer) (units unknown) (unknown) (unknown) (no date) (unknown) (unknown) Melasma () (uni ts unknown) (unknown) (unknown) (no date) (unknown) (unknown) Migraines (units unknown) (unknown) (unknown) (no date) (unknown) (unknown) Mother Rheumat oid arthritis (units unknown) (unknown) (unknown) (no date) (unknown) (unknown) Neck (units unknown) (unknown) (unknown) (no date) (unknown) (unknown) Neck: normal v isual inspection and full ROM (units unknown) (unknown) (unknown) (no date) (unknown) (unknown) No CVA tenderness (u nits unknown) (unknown) (unknown) (no date) (unknown) (unknown) No Known Drug Allergies Allergy (Verified 08/06/22 13:40) (units unknown) (unknown) (unknown) (no date) (unknown) (unknown) Non-alcoholic fatty liver disease (units unknown) (unknown) (unknown) (no date) (unknown) (unknown) Orders (units unknown) (unknown) (unknown) (no date) (unknown) (unknown) Orders: (units unknown) (unknown) (unknown) (no date) (unknown) (unknown) Other: (units unknown) (unknown) (unknown) (no date) (unknown) (unknown) Oxygen Deliver y Method room air (units unknown) (unknown) (unknown) (no date) (unknown) (unknown) PFSH (units unknown) (unknown) (unknown) (no date) (unknown) (unknown) POC PREG (units unknown) (unknown) (unknown) (no date) (unknown) (unknown) POC Preg Test Negative Last Edit by Tasneem Bird LPN on 08/06/22 13:40 (units unknown) (unknown) (unknown) (no date) (unknown) (unknown) POC Urine Dip Today R30.0 - Dysuria (units unknown) (unknown) (unknown) (no date) (unknown) (unknown) POC Urine Preg elda Test Today R30.0 - Dysuria (units unknown) (unknown) (unknown) (no date) (unknown) (unknown) Painful menstr ual periods (-1998) (units unknown) (unknown) (unknown) (no date) (unknown) (unknown) Palpation: soft (uni ts unknown) (unknown) (unknown) (no date) (unknown) (unknown) Patient is [place] rt, oriented and comfortable. (units unknown) (unknown) (unknown) (no date) (unknown) (unknown) Patient presen ts to walk-in clinic with concerns of possible urinary tract (units unknown) (unknown) (unknown) (no date) (unknown) (unknown) Patient: Haydee Woodson MR#: [id number] (units unknown) (unknown) (unknown) (no date) (unknown) (unknown) Plan (units unknown) (unknown) (unknown) (no date) (unknown) (unknown) Position Sitting (un its unknown) (unknown) (unknown) (no date) (unknown) (unknown) Preg Expiratio n 07/01/23 Last Edit by Tasneem Bird LPN on 08/06/22 13:40 (units unknown) (unknown) (unknown) (no date) (unknown) (unknown) Preg Lot # [id number] Last Edit by Tasneem Bird LPN on 08/06/22 13:40 (units unknown) (unknown) (unknown) (no date) (unknown) (unknown) Preg QC Accept able? Last Edit by Tasneem Bird LPN on 08/06/22 13:40 (units unknown) (unknown) (unknown) (no date) (unknown) (unknown) (units unknown) (unknown) (unknown) (no date) (unknown) (unknown) Psoriasis (units unknown) (unknown) (unknown) (no date) (unknown) (unknown) Pulse 84 (units unknown) (unknown) (unknown) (no date) (unknown) (unknown) Pulse Oximetry (%) 96 (units unknown) (unknown) (unknown) (no date) (unknown) (unknown) Pulse Source Monitor (units unknown) (unknown) (unknown) (no date) (unknown) (unknown) Reason For Visit (un its unknown) (unknown) (unknown) (no date) (unknown) (unknown) Regurgitation of food (units unknown) (unknown) (unknown) (no date) (unknown) (unknown) Resp (units unknown) (unknown) (unknown) (no date) (unknown) (unknown) Respiration 16 (unit s unknown) (unknown) (unknown) (no date) (unknown) (unknown) Results (units unknown) (unknown) (unknown) (no date) (unknown) (unknown) Safety (units unknown) (unknown) (unknown) (no date) (unknown) (unknown) Signed By: <Electronically signed by Kat Espinoza> (units unknown) (unknown) (unknown) (no date) (unknown) (unknown) Signed (units unknown) (unknown) (unknown) (no date) (unknown) (unknown) Sister Glaucoma (uni ts unknown) (unknown) (unknown) (no date) (unknown) (unknown) Sister History of cholecystectomy (units unknown) (unknown) (unknown) (no date) (unknown) (unknown) Skin (units unknown) (unknown) (unknown) (no date) (unknown) (unknown) Smoking Status : Never smoker (units unknown) (unknown) (unknown) (no date) (unknown) (unknown) Social History (unit s unknown) (unknown) (unknown) (no date) (unknown) (unknown) Surgical Histo ry (units unknown) (unknown) (unknown) (no date) (unknown) (unknown) Temp 98.3 F (units unknown) (unknown) (unknown) (no date) (unknown) (unknown) Temp Source Temporal Artery Scan (units unknown) (unknown) (unknown) (no date) (unknown) (unknown) This note may have been all or partially generated using voice recognition (units unknown) (unknown) (unknown) (no date) (unknown) (unknown) Threatened (units unknown) (unknown) (unknown) (no date) (unknown) (unknown) Tobacco + Subs tance Use (units unknown) (unknown) (unknown) (no date) (unknown) (unknown) Tobacco Status (unit s unknown) (unknown) (unknown) (no date) (unknown) (unknown) Type(s) of exercise: normal ROM and activity (Busy mom, with young children) (units unknown) (unknown) (unknown) (no date) (unknown) (unknown) Unknown whethe r patient has any health problems (units unknown) (unknown) (unknown) (no date) (unknown) (unknown) Urine Appearan ce Clear Last Edit by Tasneem Bird LPN on 08/06/22 13:38 (units unknown) (unknown) (unknown) (no date) (unknown) (unknown) Urine Bilirubi n 1+ 1 mg/dL Last Edit by Tasneem Bird LPN on 08/06/22 13: (units unknown) (unknown) (unknown) (no date) (unknown) (unknown) Urine Blood 1+ 25 Parvez/uL Last Edit by Tasneem Bird LPN on 08/06/22 13:38 (units unknown) (unknown) (unknown) (no date) (unknown) (unknown) Urine Color Ye llow Last Edit by Tasneem Bird LPN on 08/06/22 13:38 (units unknown) (unknown) (unknown) (no date) (unknown) (unknown) Urine Culture Today R10.9 - Unspecified abdominal pain (units unknown) (unknown) (unknown) (no date) (unknown) (unknown) Urine Dipstick (unit s unknown) (unknown) (unknown) (no date) (unknown) (unknown) Urine Glucose Negative mg/dL Last Edit by Tasneem Bird LPN on 08/06/22 13 (units unknown) (unknown) (unknown) (no date) (unknown) (unknown) Urine Ketones Negative Last Edit by Tasneem Bird LPN on 08/06/22 13:38 (units unknown) (unknown) (unknown) (no date) (unknown) (unknown) Urine Leukocyt e Esterase Negative Last Edit by Tasneem Bird LPN on 08/06 (units unknown) (unknown) (unknown) (no date) (unknown) (unknown) Urine Nitrate Negative Last Edit by Tasneem Bird LPN on 08/06/22 13:38 (units unknown) (unknown) (unknown) (no date) (unknown) (unknown) Urine Protein +- 15 mg/dL Last Edit by Tasneem Bird LPN on 08/06/22 13:3 (units unknown) (unknown) (unknown) (no date) (unknown) (unknown) Urine Specific [place] 1.025 Last Edit by Tasneem Bird LPN on 08/06/22 (units unknown) (unknown) (unknown) (no date) (unknown) (unknown) Urine Urobilin ogen - 0.2 mg/dL Last Edit by Tasneem Bird LPN on (units unknown) (unknown) (unknown) (no date) (unknown) (unknown) Urine pH 5.5 L ast Edit by Tasneem Bird LPN on 08/06/22 13:38 (units unknown) (unknown) (unknown) (no date) (unknown) (unknown) Uterine cancer (-2013) (units unknown) (unknown) (unknown) (no date) (unknown) (unknown) Uterine cancer (unit s unknown) (unknown) (unknown) (no date) (unknown) (unknown) Visit Reasons: Possible UTI - unexpected results on home UA (units unknown) (unknown) (unknown) (no date) (unknown) (unknown) Visual Muñoz: normal visual muñoz by confrontation (units unknown) (unknown) (unknown) (no date) (unknown) (unknown) Vitals (units unknown) (unknown) (unknown) (no date) (unknown) (unknown) Walk In Clinic Visit (units unknown) (unknown) (unknown) (no date) (unknown) (unknown) Petroleum teeth removed (-2006) (units unknown) (unknown) (unknown) (no date) (unknown) (unknown) alcohol intake : never (units unknown) (unknown) (unknown) (no date) (unknown) (unknown) also noticed a strange odor in her urine the last couple days. She took an at (units unknown) (unknown) (unknown) (no date) (unknown) (unknown) caffeine: Yes (1 decaf daily.) (units unknown) (unknown) (unknown) (no date) (unknown) (unknown) caregiver/supp ort person: No (units unknown) (unknown) (unknown) (no date) (unknown) (unknown) current occupational exposures/hazards: No (units unknown) (unknown) (unknown) (no date) (unknown) (unknown) daily servings fruits/ve-4 (units unknown) (unknown) (unknown) (no date) (unknown) (unknown) develop. Kai w-up with primary care as needed (units unknown) (unknown) (unknown) (no date) (unknown) (unknown) do you feel sa fe at home: Yes (units unknown) (unknown) (unknown) (no date) (unknown) (unknown) during the pas t year weight has: remained stable (units unknown) (unknown) (unknown) (no date) (unknown) (unknown) education leve l: high school (units unknown) (unknown) (unknown) (no date) (unknown) (unknown) jj/jainism : Anabaptism (units unknown) (unknown) (unknown) (no date) (unknown) (unknown) fluids. Return to the emergency department if symptoms worsen or new symptoms (units unknown) (unknown) (unknown) (no date) (unknown) (unknown) for approx 3 weeks ( units unknown) (unknown) (unknown) (no date) (unknown) (unknown) frequency: ro s not exercise (units unknown) (unknown) (unknown) (no date) (unknown) (unknown) have occurred. If there are any questions, please contact the Medical Records (units unknown) (unknown) (unknown) (no date) (unknown) (unknown) home test to [facility] for UTI and results were abnormal. She denies abdominal (units unknown) (unknown) (unknown) (no date) (unknown) (unknown) household memb ers: spouse and children (units unknown) (unknown) (unknown) (no date) (unknown) (unknown) housing: house (unit s unknown) (unknown) (unknown) (no date) (unknown) (unknown) indicate that patient has urinary tract infection. Also test was (units unknown) (unknown) (unknown) (no date) (unknown) (unknown) infection. She reports to feeling fatigued for the last month. And patient (units unknown) (unknown) (unknown) (no date) (unknown) (unknown) lives independently: Yes (units unknown) (unknown) (unknown) (no date) (unknown) (unknown) marital status : (units unknown) (unknown) (unknown) (no date) (unknown) (unknown) may occur. Occasional wrong-word or 'sound-alike' substitutions may have (units unknown) (unknown) (unknown) (no date) (unknown) (unknown) negative. We w ill send off urine culture and treat accordingly. Rest, increase (units unknown) (unknown) (unknown) (no date) (unknown) (unknown) number of chil dren: 4 (units unknown) (unknown) (unknown) (no date) (unknown) (unknown) occupational status: unemployed ([employer] (units unknown) (unknown) (unknown) (no date) (unknown) (unknown) occurred due t o the inherent limitations of voice recognition software. Please (units unknown) (unknown) (unknown) (no date) (unknown) (unknown) pain, flank pa in, nausea, vomiting, chance of STDs. Denies vaginal issues. (units unknown) (unknown) (unknown) (no date) (unknown) (unknown) pets and anima ls: Yes (Dogs + cats: safe/ aware.) (units unknown) (unknown) (unknown) (no date) (unknown) (unknown) pt arrives to [facility] with daughter c/o urine having 'funny smell' and feeling tired (units unknown) (unknown) (unknown) (no date) (unknown) (unknown) read the note carefully and recognize, using context, where these substitutions (units unknown) (unknown) (unknown) (no date) (unknown) (unknown) seatbelt use: always (units unknown) (unknown) (unknown) (no date) (unknown) (unknown) second hand exposure: No (units unknown) (unknown) (unknown) (no date) (unknown) (unknown) software. Alth ough every effort is made to edit content, advanced seal delivery system errors (units unknown) (unknown) (unknown) (no date) (unknown) (unknown) special jj needs: No (units unknown) (unknown) (unknown) (no date) (unknown) (unknown) substance use type: does not use (units unknown) (unknown) (unknown) (no date) (unknown) (unknown) well-balanced diet: about half the time ('Hard to eat protein lately.' ) (units unknown) (unknown) Result panel 48 (unknown) (no date) (unknown) (unknown) (no value) (units unknown) (unknown) (unknown) (no date) (unknown) (unknown) Very Early Humera wth: Culture too young for work-up reincubated (units unknown) (unknown) Social History date description facility 2022-06-02 00:00 Never smoked tobacco (finding) [facility] 2022-08-06 00:00 Never smoked tobacco (finding) [facility] Vital Signs date measurement value units 2022-06-02 00:00 BMI 37.3 kg/m2 2022-06-02 00:00 BP_diastolic 74 mmHg 2022-06-02 00:00 BP_systolic 119 mmHg 2022-06-02 00:00 heart_rate 86 /min 2022-06-02 00:00 height_metric 161.29 cm 2022-06-02 00:00 height_standard 63.5 in 2022-06-02 00:00 o2_saturation 98 % 2022-06-02 00:00 temperature_metric 36.17 C 2022-06-02 00:00 temperature_standard 97.1 F 2022-06-02 00:00 weight_metric 97.06 kg 2022-06-02 00:00 weight_standard 213.98 lb 2022-08-06 00:00 BP_diastolic 78 mmHg 2022-08-06 00:00 BP_systolic 122 mmHg 2022-08-06 00:00 heart_rate 84 /min 2022-08-06 00:00 o2_saturation 96 % 2022-08-06 00:00 respiration_rate 16 /min 2022-08-06 00:00 temperature_metric 36.83 C 2022-08-06 00:00 temperature_standard 98.3 F
--- NOTE | 2022-08-07 21:25 | XRAY Report ---
PROCEDURE: Foot 3 View RT INDICATIONS: Trauma TECHNIQUE: 3 views of the foot were acquired. COMPARISON: None. FINDINGS: Bones: There is a mildly comminuted minimally displaced fracture of the great toe. No dislocations. Soft tissues: No suspicious soft tissue calcifications or masses. IMPRESSION: 1. Fracture of the great toe. Reviewed by: Russell Cottrell MD on 08/07/2022 9:24 PM PDT Approved by: Russell Cottrell MD on 08/07/2022 9:24 PM PDT Station ID: [id number]
== END 2022-08-07 21:05 | disposition home or self-care (01) ==
LOC: ED 20:08
DX: S92.424A Nondisplaced fracture of distal phalanx of right great toe, initial encounter for closed fracture (principal); W20.8XXA Other cause of strike by thrown, projected or falling object, initial encounter; Y92.009 Unspecified place in unspecified non-institutional (private) residence as the place of occurrence of the external cause
CPT/HCPCS: 11740; 99283